=== PATIENT | female | born 1960 | race Two or more races ===

== ENCOUNTER 2020-07-06 08:09 | Outpatient (REF) | payer OTHER, SELFPAY | END 2020-07-06 08:10 | disposition home or self-care (01) | LOC: HO.LAB 08:09 | PROVIDERS: Visit Provider Internal Medicine | DX: Z20.828 Contact with and (suspected) exposure to other viral communicable diseases (principal) | CPT/HCPCS: C9803; U0003 ==

== ENCOUNTER → 2022-03-13 13:51 | Outpatient (BNVA) | payer OTHER, SELFPAY | PROVIDERS: PCP Internal Medicine; Visit Provider Student in an Organized Health Care Education/Training Program | DX: M79.18 Myalgia, other site (principal); M79.7 Fibromyalgia; M81.8 Other osteoporosis without current pathological fracture | CPT/HCPCS: 20552; 99202 ==

== ENCOUNTER → 2022-06-08 12:49 | Outpatient (BNVA) | payer OTHER, SELFPAY | PROVIDERS: PCP Internal Medicine; Visit Provider Student in an Organized Health Care Education/Training Program | DX: M79.18 Myalgia, other site (principal); M81.0 Age-related osteoporosis without current pathological fracture; M47.816 Spondylosis without myelopathy or radiculopathy, lumbar region; G47.33 Obstructive sleep apnea (adult) (pediatric); Z99.89 Dependence on other enabling machines and devices | CPT/HCPCS: 20552; 99212 ==

== ENCOUNTER → 2022-09-07 12:50 | Outpatient (BNVA) | payer OTHER, SELFPAY | PROVIDERS: PCP Internal Medicine; Visit Provider Student in an Organized Health Care Education/Training Program | DX: M81.8 Other osteoporosis without current pathological fracture (principal); M79.10 Myalgia, unspecified site | CPT/HCPCS: 99212 ==

== ENCOUNTER 2022-09-20 13:51 | Outpatient (REF) | payer OTHER, SELFPAY ==
--- NOTE | ~2022-09-20 | MM_ITS ---
EXAMINATION: BONE DENSITOMETRY CLINICAL INDICATION: Other osteoporosis without current pathological fracture. COMPARISON: None (current study represents initial baseline exam). TECHNIQUE: Using a Valid[employer] DXA System (software version: 13.1) manufactured by [employer], dual-energy x-ray absorptiometry was performed of the lumbar spine and left hip and left forearm radius 33%. The images are of good technical quality. Summary results are attached. FINDINGS: AP SPINE L1-L4: BMD 0.963 g/cm2, Z-score -0.6, T-score -1.8, osteopenia. LEFT FEMUR, NECK: BMD 0.670 g/cm2, Z-score -1.4, T-score -2.6, osteoporosis. LEFT FEMUR, TOTAL: BMD 0.700 g/cm2, Z-score -1.5, T-score -2.4, osteopenia. LEFT FOREARM RADIUS 33%: BMD 0.783 g/cm2, Z-score 0.0, T-score -1.1, osteopenia. IDENTIFIED RISK FACTORS: Bilateral oophorectomy, early menopause, history of fracture (adult), hysterectomy, osteoporosis, recurrent falls, rheumatoid arthritis, secondary osteoporosis. HISTORY OF FRACTURE: Wrist. Ribs. MEDICATIONS: None listed. MM/XR DEXA appendicular skeleton IMPRESSION: 1. DIAGNOSIS: Osteoporosis based on the lowest T-score value of -2.6 in the femoral neck applying World Health Organization criteria. 2. 10-YEAR FRACTURE RISK PREDICTION, FRAX: According to the guidelines, FRAX calculation should only be performed on patients in the osteopenia bone density category. Therefore, FRAX was not performed on this patient. 3. Treatment Recommendations: NOF guidelines recommend consideration for treatment in postmenopausal women and men age 50 and older presenting with the following: -A hip or vertebral (clinical or morphometric) fracture. -T-score less than or equal to -2.5 at the femoral neck or spine after appropriate evaluation to exclude secondary causes. -Low bone mass at the hip or spine and a 10-year fracture probability by FRAX of greater than or equal to 3% for hip fracture or greater than or equal to 20% for major osteoporotic fracture based on the [place] adapted WHO algorithm. 4. Other Recommendations: All treatment decisions require clinical judgment and consideration of individual patient factors, including patient preferences, comorbidities, previous drug use, risk factors not captured in the FRAX model (e.g. frailty, falls, vitamin D deficiency, increased bone turnover, interval significant decline in bone density) and possible under or overestimation of fracture risk by FRAX. Additional medical evaluation for secondary cause of low bone mineral density may be appropriate. FUTURE SCAN RECOMMENDATION: People with diagnosed cases of osteoporosis or at high risk for fracture should have regular bone mineral density tests. For patients eligible for Medicare, routine testing is allowed once every 2 years. The testing frequency can be increased to one year for patients who have rapidly progressing disease, those who are receiving or discontinuing medical therapy to restore bone mass, or have additional risk factors.
== END 2022-09-20 13:52 | disposition home or self-care (01) ==
LOC: HO.MAMMO 13:51
PROVIDERS: PCP Internal Medicine; Visit Provider Student in an Organized Health Care Education/Training Program
DX: Z13.820 Encounter for screening for osteoporosis (principal); M81.8 Other osteoporosis without current pathological fracture; Z78.0 Asymptomatic menopausal state
CPT/HCPCS: 77081

== ENCOUNTER 2023-10-24 15:13 | Outpatient (REF) | payer OTHER, SELFPAY ==
--- NOTE | ~2023-10-24 | XR_ITS ---
EXAM: X-RAYS BILATERAL KNEES CLINICAL INFORMATION: Rheumatoid arthritis. COMPARISON: None. TECHNIQUE: 4 views of each knee. FINDINGS: RIGHT KNEE: The bones are diffusely demineralized. Minimal narrowing of the medial compartment. Tiny marginal osteophytes. Trace suprapatellar effusion. XR/XR knee RT 4V IMPRESSION: Minimal degenerative changes.
--- NOTE | ~2023-10-24 | XR_ITS ---
EXAMINATION: XR RIGHT ANKLE, RIGHT FOOT, LEFT FOOT, LEFT SHOULDER, RIGHT SHOULDER, LEFT KNEE, LEFT HAND/WRIST, RIGHT HAND/WRIST CLINICAL INFORMATION: Rheumatoid arthritis unspecified. COMPARISON: Left ankle, right knee 10/24/2023. TECHNIQUE: 4 views left knee. 3 views right foot. 2 views right ankle. 3 views left foot. 4 views of each hand/wrist. 3 views of each shoulder. FINDINGS: Left Knee: Faint chondrocalcinosis in the medial and lateral compartments. Mild narrowing of the medial compartment. The bones are diffusely demineralized. No significant joint effusion. Faint amorphous calcifications in the soft tissues posterior to the distal femur. Mild degenerative changes in the patellofemoral compartment. Right Foot: Bones are diffusely demineralized. Moderate degenerative changes in the tarsometatarsal joints. Tiny dorsal and plantar calcaneal spurs. Mild degenerative changes and scattered IP joints. Right Ankle: Alignment preserved. Tiny calcification/ossification in the soft tissues lateral to the distal fibula of undetermined age and etiology. Bones are diffusely demineralized. Left Foot: Bones are diffusely demineralized. Moderate degenerative changes in the tarsometatarsal joints. Tiny dorsal and plantar calcaneal spurs. Mild degenerative changes and scattered IP joints. Left Ankle: Tiny dorsal and plantar calcaneal spurs. A few linear calcifications in the soft tissues along the plantar aspect of the calcaneus, possibly within the plantar fascia. Left Hand: Moderate degenerative changes in the first carpometacarpal joint with joint space narrowing and hypertrophic change. Bones are diffusely demineralized. Mild degenerative changes in scattered IP joints, particularly DIP joints. Tiny rounded calcification in the soft tissues between the distal aspects of the radius and ulna. Moderate degenerative changes in the first metacarpophalangeal joint with joint space narrowing and hypertrophic change. Subtle small cystic lucency in the body of the left scaphoid. Right Hand: Bones are diffusely demineralized. Moderate degenerative changes in the first carpometacarpal joint with joint space narrowing and hypertrophic change. Subtle sclerosis with cystic lucencies in the lunate. Faint calcification in the soft tissues distal to the ulna. Narrowing of the radiocarpal joint. Moderate degenerative changes with joint space narrowing and hypertrophic change in the first metacarpophalangeal joint. Mild degenerative changes and scattered IP joints, particularly notable in the DIP joints. Right Shoulder: Mild degenerative changes in the acromioclavicular joint with joint space narrowing and hypertrophic change. Mild degenerative changes with hypertrophic change along the glenoid. Possible faint curvilinear soft tissue calcification along the superolateral aspect of the glenoid. Tiny calcification along the superior aspect of the glenohumeral joint. Left Shoulder: The bones are diffusely demineralized. Mild degenerative changes in the acromioclavicular joint with joint space narrowing and hypertrophic change. Degenerative changes with hypertrophic change along the glenoid. Possible very subtle faint calcifications along the superior aspect of the glenohumeral joint and possibly superior to the greater tuberosity. XR/XR shoulder RT min 2V IMPRESSION: 1. Mild degenerative changes left knee. 2. Moderate degenerative changes bilateral feet. 3. Moderate degenerative changes bilateral hands. 4. Mild degenerative changes bilateral shoulders.
--- NOTE | ~2023-10-24 | XR_ITS ---
EXAM: X-RAYS BILATERAL KNEES CLINICAL INFORMATION: Rheumatoid arthritis. COMPARISON: None. TECHNIQUE: 4 views of each knee. FINDINGS: RIGHT KNEE: The bones are diffusely demineralized. Minimal narrowing of the medial compartment. Tiny marginal osteophytes. Trace suprapatellar effusion. XR/XR ankle LT min 3V IMPRESSION: Minimal degenerative changes.
[2023-10-24 16:45] LABS: MANUAL DIFF FLAG NO
[2023-10-24 18:02] LABS: Basophils Absolute Auto 0.1 X10*3/uL (0.0-0.2); Basophils Percent Auto 0.7 % (0-2); Eosinophils Absolute Auto 0.1 X10*3/uL (0.0-0.4); Imm Gran Abs Auto 0.03 X10*3/uL (0.00-0.03); Imm Gran Pct Auto 0.3 % (0.0-0.4); Lymphocytes Absolute Auto 2.8 X10*3/uL (1.2-4.9); Lymphocytes Percent Auto 27.7 % (20-40); Mean Corpuscular HGB Conc 32.5 g/dl (31.0-35.0); Mean Corpuscular Hemoglobin 30.1 pg (27.0-33.0); Mean Corpuscular Volume 92.6 fL (80.0-98.0); Mean Platelet Volume 11.9 fL (9.4-12.3); Monocytes Absolute Auto 0.6 X10*3/uL (0.1-1.2); Monocytes Percent Auto 5.7 % (2-11); Neutrophils Absolute Auto 6.5 x10*3/uL (2.0-8.3); Neutrophils Percent Auto 64.6 % (45-73); Platelet Count 204 X10*3/uL (160-400); Red Blood Count 4.32 X10*6/uL (4.20-5.50); Red Cell Distribution Width 12.7 % (11.0-16.0)
[2023-10-24 18:04] LABS: Appearance Urine Clear; Color Urine Yellow; Glucose Urine UA Negative (Negative); Leukocyte Esterase Urine Trace (Negative); Nitrite Urine Negative (Negative); PH 6.5 (5.0-9.0); Specific Gravity - Urine 1.015 (1.005-1.025); UMIC TRIGGER UA YES; Urine Blood Moderate (2+) (Negative); Urine Ketones Negative (Negative); Urine Protein Negative (Neg-Trace)
[2023-10-24 18:10] LABS: Bacteria Urine None Seen (None Seen); Hyaline Casts Urine 0-2 /LPF (0-2); Squamous Epithelial Cell Urine 0-2 /HPF (0-2); WBC Urine 0-5 /HPF (0-5)
[2023-10-24 18:43] LABS: Alanine Aminotransferase 19 U/L (0-31); Albumin Level 4.5 g/dL (3.5-5.0); Alkaline Phosphatase 98 U/L (39-117); Anion Gap 11 (12-20); Aspartate Amino Transferase 18 U/L (5-31); Bilirubin Total 0.4 mg/dL (0.0-1.0); Blood Urea Nitrogen 13 mg/dL (9-16); C Reactive Protein < 0.10 mg/dL (< or = 0.50); Carbon Dioxide 28 mmol/L (22-29); Chloride 106 mmol/L (96-108); Estimated Glomerular Filt Rate > 60; Glucose Random 79 mg/dL (60-115); Potassium 3.7 mmol/L (3.3-5.1); Sodium 141 mmol/L (135-145); Total Protein 8.1 g/dL (6.5-8.0)
[2023-10-24 18:47] LABS: Total Protein Urine Random < 7 mg/dL (<12)
[2023-10-24 18:47] LABS: Erythrocyte Sedimentation Rate 25 MM/HR (0-20); Rheumatoid Factor < 13.0 IU/mL (<15.0)
[2023-10-25 04:33] LABS: HBS Num1 35.58 mIU/mL (0-7.99); HBc Num1 0.08 S/CO (0.00-0.79); HBsAGNum1 0.51 S/CO (0.00-0.99); Hepatitis A Antibody IgM 0.22 Index (0-0.79); Hepatitis B Core Antibody Nonreactive (Nonreactive); Hepatitis B Surface Antigen Negative (Negative); ~HepC Num1 0.22 S/CO (0.00-0.79); ~Hepatitis A Antibody IgM Nonreactive (Nonreactive); ~Hepatitis B Surface Antibody REACTIVE (Nonreactive); ~Hepatitis C Antibody Nonreactive (Nonreactive)
[2023-10-25 15:38] LABS: Cyclic Citrullinated Peptide 174 UNITS
[2023-10-25 16:38] LABS: Anti Nuclear Antibody Screen NEGATIVE (NEGATIVE)
[2023-10-25 22:24] LABS: Prot Elec - Albumin 4.6 g/dL (3.8-4.8); Prot Elec - Alpha1 0.3 g/dL (0.2-0.3); Prot Elec - Alpha2 0.7 g/dL (0.5-0.9); Prot Elec - Beta 1 0.5 g/dL (0.4-0.6); Prot Elec - Beta 2 0.5 g/dL (0.2-0.5); Prot Elec - Gamma 1.3 g/dL (0.8-1.7); Prot Elec - Total Protein 7.8 g/dL (6.1-8.1)
[2023-10-26 23:23] LABS: Complement C3 141 mg/dL (83-193)
[2023-10-27 05:13] LABS: TS Negative Control Passed; TS Panel A 0; TS Panel B 0; TS Positive Control Passed; TSpotTB Negative (Negative)
[2023-10-28 14:29] LABS: Anti DNA DS Antibody <1 IU/mL; Antibody to SS-A Antigen <1.0 NEG AI (<1.0 NEG); Antibody to SS-B Antigen <1.0 NEG AI (<1.0 NEG); SM/Ribonucleoprotein Ab <1.0 NEG AI (<1.0 NEG); Smith Protein <1.0 NEG AI (<1.0 NEG)
[2023-10-30 14:54] LABS: DNAds, Crithidia Antibody Negative (Negative)
== END 2023-10-24 15:14 | disposition home or self-care (01) ==
LOC: HO.XRAY 15:13
PROVIDERS: PCP Internal Medicine; Visit Provider Student in an Organized Health Care Education/Training Program
DX: M32.9 Systemic lupus erythematosus, unspecified (principal); M06.9 Rheumatoid arthritis, unspecified; M25.50 Pain in unspecified joint; M81.8 Other osteoporosis without current pathological fracture; Z79.899 Other long term (current) drug therapy
CPT/HCPCS: 36415; 73030; 73110; 73130; 73564; 73610; 73630; 80053; 81001; 84156; 84165; 85025; 85652; 86038; 86140; 86160; 86200; 86225; 86235; 86255; 86431; 86481; 86704; 86706; 86709; 86803; 87340; 99212

== ENCOUNTER 2023-10-24 15:13 | Outpatient (AMB) | payer OTHER, SELFPAY ==
[2023-10-24 15:29] VITALS: BP 124/62; PULSE 93; O2SAT 98; BMI 25.7
--- NOTE | 2023-10-24 15:29 | A.OFFVIS_ITS ---
Intake Vital Signs 10/24/23 15:29 Height 5 ft 9 in Weight 174 lb 6.17 oz BMI 25.7 BP 124/62 Blood Pressure Location Rt brachial Position Sitting Pulse 93 Pulse Source Pulse Oximeter Pulse Oximetry (%) 98 Oxygen Delivery Method Room Air Intake Visit Reasons: FM/ LVM Intake Note: Patient last seen 09/07/22 presents today for follow up and DEXA results. 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 Name: - form signed Information Interpreted: non-clinical & clinical Accompanied by: Spouse Allergies gabapentin Adverse Reaction (Intermediate, Unverified 10/24/23 15:31) Rash Penicillins Adverse Reaction (Intermediate, Unverified 10/24/23 15:31) Rash Medication List - Last Reconciled 10/24/23 by Arlen Carrillo MD albuterol sulfate 90 mcg/actuation 2 puffs inhalation Q6H PRN atorvastatin 20 mg PO DAILY cetirizine (All Day Allergy (cetirizine)) 10 mg PO DAILY PRN cholecalciferol (vitamin D3) 50 mcg PO DAILY cyclosporine 0.05% (Restasis) 1 drp ophthalmic (eye) Q12H diclofenac sodium 1% (Arthritis Pain (diclofenac)) 2 grams topical QID diclofenac sodium 75 mg PO BID docusate sodium 100 mg PO BID doxepin 10 mg PO BEDTIME ergocalciferol (vitamin D2) units PO .every week fluoxetine 20 mg PO DAILY fluticasone propion-salmeterol 250-50 mcg/dose (Wixela Inhub) 1 inh inhalation BID lidocaine 5% (Lidoderm) 1 patch topical DAILY lorazepam 1 mg PO BID PRN oxycodone 0 mg PO propranolol ER 60 mg PO DAILY sumatriptan succinate (Imitrex) take 1 tab at onset of headache; if no relief, may repeat 1 tab after at least 2 hrs; max = 2 tabs/24 hrs PO zolpidem 10 mg PO BEDTIME PRN HPI HPI Comments History of Present Illness Details 63-year-old female with fibromyalgia ret urns for follow-up. She presents with her . She states that recently she has been having pain in both hands. Swelling bilateral 2nd MCP. Morning stiffness lasting about 30 minutes. She also has bilateral knee and ankle pain and swelling Initial history: 61 y/o F with FM. used to see Dr. Frias before. She was allergic to Gabapentin, Never tried Lyrica. She continues to have the same pain mostly in her neck, upper back and shoulders. No joint swelling. Continues to have fatigue. [facility] Medical History Migraine GERD (gastroesophageal reflux disease) Depression Hyperlipidemia Degenerative disc disease, lumbar Age-related osteoporosis without fracture Fibromyalgia Nephrolithiasis Surgical History History of mammogram H/O total hysterectomy Hx of bilateral breast reduction surgery Hx of colonoscopy History of esophagogastroduodenoscopy (EGD) Family History Father Myocardial infarction Diabetes Coronary artery disease Mother Brain aneurysm Rheumatoid arthritis Gastric cancer Sister Rheumatoid arthritis Social History Household Members: Spouse Alcohol intake: never Patient Tobacco Use Status: Never used Tobacco Current occupational status: disabled Review of Systems [employer] Reports back pain, Reports arthralgias, Reports joint swelling and Reports stiffness Physical Exam Vital Signs: Last Vital Signs Pulse 93 10/24/23 15:29 BP 124/62 10/24/23 15:29 Pulse Ox 98 10/24/23 15:29 Oxygen Delivery Method Room Air 10/24/23 15:29 BMI result Body Mass Index 25.7 Const General: cooperative, healthy appearing and comfortable Nutritional Appearance: overweight Orientation/consciousness: patient oriented x3 Limitations: no limitations HEENT Head: Yes normocephalic and Yes atraumatic Mouth: moist mucous membranes Resp Effort & Inspection: normal respiratory effort and able to speak in complete sentences Auscultation: clear to auscultation bilaterally Cardio Rate: regular rate Rhythm: regular rhythm GI Inspection: No distended Palpation (GI): Soft to palpation and nontender Skin General skin exam: no rashes or lesions noted Neuro General: patient oriented x3 Extrem Other: Right 2nd MCP swelling and tenderness Right 2nd flexor tendon tenderness Negative MCP squeeze test bilaterally Mild left 2nd MCP swelling without tenderness No active synovitis otherwise both hands and wrists Bilateral limited shoulder abduction, painful shoulder abduction bilaterally Bilateral trapezius muscle tenderness Bilateral knee crepitus and pain with full flexion and extension Right lateral malleolus tenderness No MTP tenderness bilaterally Negative MTP squeeze test bilaterally Assessment & Plan Assessment & Plan (1) Polyarthralgia: Code(s): M25.50 - Pain in unspecified joint Plan: This is a 63-year-old female with known fibromyalgia who presents for evaluation of multiple painful, swollen joints and morning stiffness. Will order comprehensive serology to screen for underlying autoimmune rheumatic disease. Check x-rays of involved joints. Start prednisone therapeutic trial Follow-up in 3 weeks (2) Age-related osteoporosis without fracture: Code(s): M81.8 - Other osteoporosis without current pathological fracture Plan: Launch by endocrinology at [facility] I spent 30 minutes reviewing patient's chart, evaluating patient, ordering diagnostic workup, counseling patient and documenting in the chart Orders: Orders SVETLANA Reflex Titer and Pattern Today M32.9 - Systemic lupus erythematosus, unspecified Anti Extractable Nuclear Ag Today M32.9 - Systemic lupus erythematosus, unspecified Complement C3 Today M32.9 - Systemic lupus erythematosus, unspecified Complement C4 Today M32.9 - Systemic lupus erythematosus, unspecified C Reactive Protein Today M32.9 - Systemic lupus erythematosus, unspecified Erythrocyte Sedimentation Rate Today M32.9 - Systemic lupus erythematosus, unspecified Protein Creatinine Ratio, Ur Today M32.9 - Systemic lupus erythematosus, unspecified UA w Microscopic Today M32.9 - Systemic lupus erythematosus, unspecified Complete Blood Count Auto Diff Today M32.9 - Systemic lupus erythematosus, unspecified Hepatitis A,B,C Profile Today M32.9 - Systemic lupus erythematosus, unspecified Rheumatoid Factor Today M06.9 - Rheumatoid arthritis, unspecified Cyclic Citrullinated Peptide Today M06.9 - Rheumatoid arthritis, unspecified XR knee RT 3V Today M06.9 - Rheumatoid arthritis, unspecified XR knee standing BI Today M06.9 - Rheumatoid arthritis, unspecified XR ankle RT min 3V Today M06.9 - Rheumatoid arthritis, unspecified XR foot RT min 3V Today M06.9 - Rheumatoid arthritis, unspecified XR hand wrist LT Today M06.9 - Rheumatoid arthritis, unspecified XR hand wrist RT Today M06.9 - Rheumatoid arthritis, unspecified Anti DNA DS Antibody Today M32.9 - Systemic lupus erythematosus, unspecified DNA Double Stranded-Crithidia Today M32.9 - Systemic lupus erythematosus, unspecified Sjogren's Antibodies Today M32.9 - Systemic lupus erythematosus, unspecified Comprehensive Met. Panel Today M32.9 - Systemic lupus erythematosus, unspecified T Spot TB Today M32.9 - Systemic lupus erythematosus, unspecified Protein Electrophoresis, Serum Today M32.9 - Systemic lupus erythematosus, unspecified Immunofixation Pnl, Serum Today M32.9 - Systemic lupus erythematosus, unspecified XR knee LT 3V Today M06.9 - Rheumatoid arthritis, unspecified XR ankle LT min 3V Today M06.9 - Rheumatoid arthritis, unspecified XR foot LT min 3V Today M06.9 - Rheumatoid arthritis, unspecified XR shoulder LT min 2V Today M06.9 - Rheumatoid arthritis, unspecified XR shoulder RT min 2V Today M06.9 - Rheumatoid arthritis, unspecified Medications: New prednisone Take 3 tabs daily for 1 week, 2 tabs daily for 1 week, 1 tab daily for 1 week then stop 42 tabs 0RF Coding Level of Care Code Est Pt Level 4 (31542) Diagnoses Polyarthralgia M25.50 Age-related osteoporosis without fracture M81.8
== END 2023-10-24 15:53 | disposition home or self-care (01) ==
PROVIDERS: PCP Internal Medicine; Visit Provider Student in an Organized Health Care Education/Training Program
DX: M25.50 Pain in unspecified joint (principal); M81.8 Other osteoporosis without current pathological fracture
CPT/HCPCS: 99214

== ENCOUNTER 2023-11-14 11:40 | Outpatient (AMB) | payer OTHER, SELFPAY ==
[2023-11-14 11:43] VITALS: BP 108/62; PULSE 75; O2SAT 98; BMI 25.5
--- NOTE | 2023-11-14 11:43 | MHC.OFFVIS ---
Intake Vital Signs 11/14/23 11:43 Height 5 ft 9 in Weight 172 lb 9.951 oz BMI 25.5 BP 108/62 Blood Pressure Location Rt brachial Position Sitting Pulse 75 Pulse Source Pulse Oximeter Pulse Oximetry (%) 98 Oxygen Delivery Method Room Air Intake Visit Reasons: RA/OA Intake Note: Patient last seen 10/24/23 presents today for follow up and test results. Apprentice Instrument Technician Required: Yes Apprentice Instrument Technician Language: Narcotics Agent Name: - form signed Information Interpreted: non-clinical & clinical Accompanied by: Allergies gabapentin Adverse Reaction (Intermediate, Unverified 11/14/23 11:48) Rash Penicillins Adverse Reaction (Intermediate, Unverified 11/14/23 11:48) Rash Medication List - Last Reconciled 11/14/23 by Arlen Carrillo MD albuterol sulfate 90 mcg/actuation 2 puffs inhalation Q6H PRN atorvastatin 20 mg PO DAILY cetirizine (All Day Allergy (cetirizine)) 10 mg PO DAILY PRN cholecalciferol (vitamin D3) 50 mcg PO DAILY cyclosporine 0.05% (Restasis) 1 drp ophthalmic (eye) Q12H diclofenac sodium 1% (Arthritis Pain (diclofenac)) 2 grams topical QID diclofenac sodium 75 mg PO BID docusate sodium 100 mg PO BID doxepin 10 mg PO BEDTIME ergocalciferol (vitamin D2) units PO .every week fluoxetine 20 mg PO DAILY fluticasone propion-salmeterol 250-50 mcg/dose (Wixela Inhub) 1 inh inhalation BID lidocaine 5% (Lidoderm) 1 patch topical DAILY lorazepam 1 mg PO BID PRN oxycodone 0 mg PO prednisone Take 3 tabs daily for 1 week, 2 tabs daily for 1 week, 1 tab daily for 1 week then stop propranolol ER 60 mg PO DAILY sumatriptan succinate (Imitrex) take 1 tab at onset of headache; if no relief, may repeat 1 tab after at least 2 hrs; max = 2 tabs/24 hrs PO zolpidem 10 mg PO BEDTIME PRN HPI HPI Comments History of Present Illness Details Patient returns for follow-up after completion of her diagnostic workup. States that prednisone did not provide much help. Her joint pain and swelling is much worse at night. Especially with swelling of her knuckles. Initial history: 61 y/o F with FM. used to see Dr. Frias before. She was allergic to Gabapentin, Never tried Lyrica. She continues to have the same pain mostly in her neck, upper back and shoulders. No joint swelling. Continues to have fatigue. [facility] Medical History (Updated 11/14/23 @ 12:17 by Arlen Carrillo MD) Migraine GERD (gastroesophageal reflux disease) Depression Hyperlipidemia Degenerative disc disease, lumbar Age-related osteoporosis without fracture Fibromyalgia Nephrolithiasis Surgical History History of mammogram H/O total hysterectomy Hx of bilateral breast reduction surgery Hx of colonoscopy History of esophagogastroduodenoscopy (EGD) Family History Father Myocardial infarction Diabetes Coronary artery disease Mother Brain aneurysm Rheumatoid arthritis Gastric cancer Sister Rheumatoid arthritis Social History Household Members: Spouse Alcohol intake: never Patient Tobacco Use Status: Never used Tobacco Current occupational status: disabled Review of Systems [facility] Reports back pain, Reports arthralgias, Reports joint swelling and Reports stiffness Physical Exam Vital Signs: Last Vital Signs Pulse 75 11/14/23 11:43 BP 108/62 11/14/23 11:43 Pulse Ox 98 11/14/23 11:43 Oxygen Delivery Method Room Air 11/14/23 11:43 BMI result Body Mass Index 25.5 Const General: cooperative, healthy appearing and comfortable Nutritional Appearance: overweight Orientation/consciousness: patient oriented x3 Limitations: no limitations HEENT Head: Yes normocephalic and Yes atraumatic Mouth: moist mucous membranes Resp Effort & Inspection: normal respiratory effort and able to speak in complete sentences Skin General skin exam: no rashes or lesions noted Neuro General: patient oriented x3 Extrem Other: Right 2nd MCP puffiness without tenderness Negative MCP squeeze test bilaterally Mild left 2nd MCP puffiness without tenderness No active synovitis otherwise both hands and wrists Normal range of motion of both shoulders bilaterally No MTP tenderness bilaterally Negative MTP squeeze test bilaterally Assessment & Plan Assessment & Plan (1) Seropositive rheumatoid arthritis: Comment: -ve RF ++CCP dx 10/2023 Code(s): M05.9 - Rheumatoid arthritis with rheumatoid factor, unspecified Plan: This is a 63-year-old female with known fibromyalgia who presents for evaluation of multiple swollen and painful joints. Labs showed mildly elevated ESR and significantly elevated CCP. Symptoms improved with prednisone. Will need to start DMARDs. Discussed risks and benefits of methotrexate. Patient agreed to proceed. 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
== END 2023-11-14 12:13 | disposition home or self-care (01) ==
PROVIDERS: PCP Internal Medicine; Visit Provider Student in an Organized Health Care Education/Training Program
DX: M05.79 Rheumatoid arthritis with rheumatoid factor of multiple sites without organ or systems involvement (principal); M81.8 Other osteoporosis without current pathological fracture; Z79.631 Long term (current) use of antimetabolite agent
CPT/HCPCS: 99214

== ENCOUNTER → 2023-11-14 11:40 | Outpatient (BNVA) | payer OTHER, SELFPAY | PROVIDERS: PCP Internal Medicine; Visit Provider Student in an Organized Health Care Education/Training Program | DX: M05.9 Rheumatoid arthritis with rheumatoid factor, unspecified (principal); M79.7 Fibromyalgia; M81.8 Other osteoporosis without current pathological fracture; Z79.631 Long term (current) use of antimetabolite agent; Z79.52 Long term (current) use of systemic steroids | CPT/HCPCS: 99212 ==

== ENCOUNTER 2024-01-03 06:38 | Outpatient (REF) | payer OTHER, SELFPAY ==
[2024-01-03 06:47] LABS: MANUAL DIFF FLAG NO
[2024-01-03 07:11] LABS: Basophils Absolute Auto 0.1 X10*3/uL (0.0-0.2); Basophils Percent Auto 0.9 % (0-2); Eosinophils Absolute Auto 0.1 X10*3/uL (0.0-0.4); Eosinophils Percent Auto 1.9 % (0-4); Hematocrit 37.4 % (37.0-47.0); Hemoglobin 12.3 g/dl (12.0-16.0); Imm Gran Abs Auto 0.02 X10*3/uL (0.00-0.03); Imm Gran Pct Auto 0.3 % (0.0-0.4); Lymphocytes Absolute Auto 2.1 X10*3/uL (1.2-4.9); Lymphocytes Percent Auto 30.4 % (20-40); Mean Corpuscular HGB Conc 32.9 g/dl (31.0-35.0); Mean Corpuscular Hemoglobin 30.8 pg (27.0-33.0); Mean Corpuscular Volume 93.5 fL (80.0-98.0); Mean Platelet Volume 10.8 fL (9.4-12.3); Monocytes Absolute Auto 0.5 X10*3/uL (0.1-1.2); Monocytes Percent Auto 7.3 % (2-11); Neutrophils Percent Auto 59.2 % (45-73); Platelet Count 215 X10*3/uL (160-400); Red Cell Distribution Width 13.5 % (11.0-16.0); White Blood Count 6.7 X10*3/uL (4.8-10.8)
[2024-01-03 07:21] LABS: Alanine Aminotransferase 14 U/L (0-31); Albumin Level 4.3 g/dL (3.5-5.0); Alkaline Phosphatase 106 U/L (39-117); Anion Gap 10 (12-20); Aspartate Amino Transferase 18 U/L (5-31); Bilirubin Total 0.2 mg/dL (0.0-1.0); Blood Urea Nitrogen 10 mg/dL (9-16); C Reactive Protein < 0.10 mg/dL (< or = 0.50); Calcium 9.9 mg/dL (8.4-10.2); Carbon Dioxide 28 mmol/L (22-29); Chloride 109 mmol/L (96-108); Estimated Glomerular Filt Rate > 60; Glucose Random 86 mg/dL (60-115); Potassium 4.1 mmol/L (3.3-5.1); Sodium 143 mmol/L (135-145); Total Protein 7.7 g/dL (6.5-8.0)
[2024-01-03 07:47] LABS: Erythrocyte Sedimentation Rate 23 MM/HR (0-20)
== END 2024-01-03 06:39 | disposition home or self-care (01) ==
LOC: HO.LAB 06:38
PROVIDERS: PCP Internal Medicine; Visit Provider Student in an Organized Health Care Education/Training Program
DX: Z51.81 Encounter for therapeutic drug level monitoring (principal); Z79.631 Long term (current) use of antimetabolite agent
CPT/HCPCS: 36415; 80053; 85025; 85652; 86140

== ENCOUNTER 2024-01-14 14:23 | Outpatient (AMB) | payer OTHER, SELFPAY ==
[2024-01-14 14:27] VITALS: BP 134/82; PULSE 73; O2SAT 96; BMI 25.1
--- NOTE | 2024-01-14 14:27 | MHC.OFFVIS ---
Vital Signs 01/14/24 14:27 Height 5 ft 9 in Weight 169 lb 15.622 oz BMI 25.1 BP 134/82 Blood Pressure Location Rt brachial Position Sitting Pulse 73 Pulse Source Pulse Oximeter Pulse Oximetry (%) 96 Oxygen Delivery Method Room Air Intake Visit Reasons: RA Intake Note: Patient present today for RA follow up visit. Cement Mixer Required: Yes Cement Mixer Language: Upper Sorbian Information Interpreted: non-clinical & clinical Accompanied by: Self / Same As Patient Allergies gabapentin Adverse Reaction (Intermediate, Unverified 01/14/24 14:30) Rash Penicillins Adverse Reaction (Intermediate, Unverified 01/14/24 14:30) Rash Medication List - Last Reconciled 01/14/24 by Arlen Carrillo MD albuterol sulfate 90 mcg/actuation 2 puffs inhalation Q6H PRN atorvastatin 20 mg PO DAILY cetirizine (All Day Allergy (cetirizine)) 10 mg PO DAILY PRN cholecalciferol (vitamin D3) 50 mcg PO DAILY cyclosporine 0.05% (Restasis) 1 drp ophthalmic (eye) Q12H diclofenac sodium 1% (Arthritis Pain (diclofenac)) 2 grams topical QID diclofenac sodium 75 mg PO BID docusate sodium 100 mg PO BID doxepin 10 mg PO BEDTIME ergocalciferol (vitamin D2) units PO .every week fluoxetine 20 mg PO DAILY fluticasone propion-salmeterol 250-50 mcg/dose (Wixela Inhub) 1 inh inhalation BID folic acid 1 mg PO DAILY lidocaine 5% (Lidoderm) 1 patch topical DAILY lorazepam 1 mg PO BID PRN methotrexate sodium Take 6 tabs once weekly for 2 weeks then 8 tabs once weekly oxycodone 0 mg PO prednisone Take 2 tabs daily for 2 weeks then remain on 1 tab daily propranolol ER 60 mg PO DAILY sumatriptan succinate (Imitrex) take 1 tab at onset of headache; if no relief, may repeat 1 tab after at least 2 hrs; max = 2 tabs/24 hrs PO zolpidem 10 mg PO BEDTIME PRN HPI Comments Details: 63-year-old female with seropositive RA returns for follow-up. She has been taking methotrexate regularly for the last 2 months. She takes methotrexate 20 mg on Saturday and she feels reasonably well until Saturday when she starts having more joint pain and stiffness especially of her shoulders. She has constant pain in her left 2nd MCP especially at night. She can not think of any side effects related to methotrexate. Initial history: 61 y/o F with FM. used to see Dr. Frias before. She was allergic to Gabapentin, Never tried Lyrica. She continues to have the same pain mostly in her neck, upper back and shoulders. No joint swelling. Continues to have fatigue. PFSH Medical History Migraine GERD (gastroesophageal reflux disease) Depression Hyperlipidemia Degenerative disc disease, lumbar Age-related osteoporosis without fracture Fibromyalgia Nephrolithiasis Surgical History History of mammogram H/O total hysterectomy Hx of bilateral breast reduction surgery Hx of colonoscopy History of esophagogastroduodenoscopy (EGD) Family History Father Myocardial infarction Diabetes Coronary artery disease Mother Brain aneurysm Rheumatoid arthritis Gastric cancer Sister Rheumatoid arthritis Social History Household Members: Spouse Alcohol intake: never Patient Tobacco Use Status: Never used Tobacco Current occupational status: disabled Review of Systems [employer] Reports arthralgias, Reports joint swelling and Reports stiffness Physical Exam Vital Signs: Last Vital Signs Pulse 73 01/14/24 14:27 BP 134/82 01/14/24 14:27 Pulse Ox 96 01/14/24 14:27 Oxygen Delivery Method Room Air 01/14/24 14:27 BMI result Body Mass Index 25.1 Const General: cooperative, healthy appearing and comfortable Nutritional Appearance: overweight Orientation/consciousness: patient oriented x3 Limitations: no limitations HEENT Head: Yes normocephalic and Yes atraumatic Mouth: moist mucous membranes Resp Effort & Inspection: normal respiratory effort and able to speak in complete sentences Skin General skin exam: no rashes or lesions noted Neuro General: patient oriented x3 Extrem Other: Right wrist pain with full extension No swelling or tenderness noted Negative MCP squeeze test bilaterally Left 2nd MCP swelling and tenderness No active synovitis otherwise both hands and wrists Bilateral limited shoulder abduction due to pain No MTP tenderness bilaterally Negative MTP squeeze test bilaterally Assessment & Plan Assessment & Plan (1) Seropositive rheumatoid arthritis: Comment: -ve RF ++CCP dx 10/2023 MTX 10/2023 Code(s): M05.9 - Rheumatoid arthritis with rheumatoid factor, unspecified Category: Medical Plan: This is a 63-year-old female with new onset seropositive RA who returns for follow-up. She has been taking methotrexate 20 mg weekly for the last 2 months. She feels noticeable improvement for 3-4 days then pain and swelling returns. On exam she has few tender joints. Methotrexate has been well tolerated Increase methotrexate to 25 mg weekly and split dose, 5 tabs on Saturday and 5 tabs on Saturday Continue folic acid 1 mg daily Labs before next visit in 3 months (2) Age-related osteoporosis without fracture: Code(s): M81.8 - Other osteoporosis without current pathological fracture Category: Medical Plan: Followed by endocrinology at [place] (3) half-way methotrexate user: Code(s): Z79.631 - half-way (current) use of antimetabolite agent Category: Medical Plan: Monitor safety labs Plan I spent 25 minutes reviewing patient's chart, evaluating patient, ordering diagnostic workup, counseling patient and documenting in the chart Orders: Orders Complete Blood Count Auto Diff 3 Months M05.9 - Rheumatoid arthritis with rheumatoid factor, unspecified, Z79.631 - terminal computer operator (current) use of antimetabolite agent Comprehensive Met. Panel 3 Months M05.9 - Rheumatoid arthritis with rheumatoid factor, unspecified, Z79.631 - half-way (current) use of antimetabolite agent C Reactive Protein 3 Months M05.9 - Rheumatoid arthritis with rheumatoid factor, unspecified, Z79.631 - terminal computer operator (current) use of antimetabolite agent Erythrocyte Sedimentation Rate 3 Months M05.9 - Rheumatoid arthritis with rheumatoid factor, unspecified, Z79.631 - terminal computer operator (current) use of antimetabolite agent Medications: Changed From methotrexate sodium Take 6 tabs once weekly for 2 weeks then 8 tabs once weekly 205 tabs 0RF To methotrexate sodium Take 5 tabs on Saturday and 5 tabs on Saturday 25 mg (10 x 2.5 mg) PO QWEEK 130 tabs 0RF Coding Level of Care Code Est Pt Level 4 (38654) Diagnoses Seropositive rheumatoid arthritis M05.9 Age-related osteoporosis without fracture M81.8 terminal computer operator methotrexate user Z79.631
== END 2024-01-14 15:04 | disposition home or self-care (01) ==
PROVIDERS: PCP Internal Medicine; Visit Provider Student in an Organized Health Care Education/Training Program
DX: M05.79 Rheumatoid arthritis with rheumatoid factor of multiple sites without organ or systems involvement (principal); M81.8 Other osteoporosis without current pathological fracture; Z79.631 Long term (current) use of antimetabolite agent
CPT/HCPCS: 99214

== ENCOUNTER → 2024-01-14 14:23 | Outpatient (BNVA) | payer OTHER, SELFPAY | PROVIDERS: PCP Internal Medicine; Visit Provider Student in an Organized Health Care Education/Training Program | DX: M05.9 Rheumatoid arthritis with rheumatoid factor, unspecified (principal); M81.8 Other osteoporosis without current pathological fracture; Z79.631 Long term (current) use of antimetabolite agent | CPT/HCPCS: 99212 ==

== ENCOUNTER 2024-04-07 11:57 | Outpatient (REF) | payer OTHER, SELFPAY ==
[2024-04-07 12:18] LABS: MANUAL DIFF FLAG NO
[2024-04-07 12:36] LABS: Basophils Absolute Auto 0.1 X10*3/uL (0.0-0.2); Basophils Percent Auto 0.8 % (0-2); Eosinophils Absolute Auto 0.1 X10*3/uL (0.0-0.4); Eosinophils Percent Auto 1.5 % (0-4); Hematocrit 38.1 % (37.0-47.0); Hemoglobin 12.7 g/dl (12.0-16.0); Imm Gran Abs Auto 0.02 X10*3/uL (0.00-0.03); Imm Gran Pct Auto 0.3 % (0.0-0.4); Lymphocytes Absolute Auto 2.5 X10*3/uL (1.2-4.9); Lymphocytes Percent Auto 33.7 % (20-40); Mean Corpuscular HGB Conc 33.3 g/dl (31.0-35.0); Mean Platelet Volume 10.5 fL (9.4-12.3); Monocytes Absolute Auto 0.4 X10*3/uL (0.1-1.2); Monocytes Percent Auto 5.4 % (2-11); Neutrophils Absolute Auto 4.3 x10*3/uL (2.0-8.3); Neutrophils Percent Auto 58.3 % (45-73); Platelet Count 230 X10*3/uL (160-400); Red Blood Count 3.97 X10*6/uL (4.20-5.50); Red Cell Distribution Width 13.8 % (11.0-16.0); White Blood Count 7.4 X10*3/uL (4.8-10.8)
[2024-04-07 13:01] LABS: Alanine Aminotransferase 35 U/L (0-31); Albumin Level 4.5 g/dL (3.5-5.0); Alkaline Phosphatase 85 U/L (39-117); Anion Gap 8 (12-20); Aspartate Amino Transferase 24 U/L (5-31); Bilirubin Total 0.5 mg/dL (0.0-1.0); Blood Urea Nitrogen 11 mg/dL (9-16); C Reactive Protein < 0.10 mg/dL (< or = 0.50); Calcium 9.8 mg/dL (8.4-10.2); Carbon Dioxide 27 mmol/L (22-29); Chloride 108 mmol/L (96-108); Estimated Glomerular Filt Rate > 60; Glucose Random 88 mg/dL (60-115); Potassium 4.3 mmol/L (3.3-5.1); Sodium 139 mmol/L (135-145); Total Protein 7.9 g/dL (6.5-8.0)
[2024-04-07 13:13] LABS: Erythrocyte Sedimentation Rate 23 MM/HR (0-20)
== END 2024-04-07 11:58 | disposition home or self-care (01) ==
LOC: HO.LAB 11:57
PROVIDERS: PCP Internal Medicine; Visit Provider Student in an Organized Health Care Education/Training Program
DX: M05.9 Rheumatoid arthritis with rheumatoid factor, unspecified (principal); Z79.631 Long term (current) use of antimetabolite agent
CPT/HCPCS: 36415; 80053; 85025; 85652; 86140

== ENCOUNTER 2024-04-16 13:57 | Outpatient (AMB) | payer OTHER, SELFPAY ==
[2024-04-16 14:49] VITALS: BP 126/76; PULSE 76; O2SAT 98; BMI 25.2
--- NOTE | 2024-04-16 14:49 | A.OFFVIS_ITS ---
Vital Signs 04/16/24 14:49 Height 5 ft 9 in Weight 171 lb BMI 25.2 BP 126/76 Blood Pressure Location Lt brachial Position Sitting Pulse 76 Pulse Source Pulse Oximeter Pulse Oximetry (%) 98 Oxygen Delivery Method Room Air Intake Visit Reasons: RA Intake Note: Patient last seen by Doctor Arlen Carrillo on 01/14/24. Presents today for RA follow, up and test results. Patient's states she has been having worsening symptoms everywhere. Methotrexate refill is requested today. General Car Yard Supervisor Services: General Car Yard Supervisor Offered & Declined Allergies gabapentin Adverse Reaction (Intermediate, Unverified 01/14/24 14:30) Rash Penicillins Adverse Reaction (Intermediate, Unverified 01/14/24 14:30) Rash Medication List - Last Reconciled 04/16/24 by Arlen Carrillo MD albuterol sulfate 90 mcg/actuation 2 puffs inhalation Q6H PRN atorvastatin 20 mg PO DAILY cetirizine (All Day Allergy (cetirizine)) 10 mg PO DAILY PRN cholecalciferol (vitamin D3) 50 mcg PO DAILY cyclosporine 0.05% (Restasis) 1 drp ophthalmic (eye) Q12H diclofenac sodium 1% (Arthritis Pain (diclofenac)) 2 grams topical QID diclofenac sodium 75 mg PO BID docusate sodium 100 mg PO BID doxepin 10 mg PO BEDTIME ergocalciferol (vitamin D2) units PO .every week fluoxetine 20 mg PO DAILY fluticasone propion-salmeterol 250-50 mcg/dose (Wixela Inhub) 1 inh inhalation BID folic acid 1 mg PO DAILY lidocaine 5% (Lidoderm) 1 patch topical DAILY lorazepam 1 mg PO BID PRN methotrexate sodium 20 mg (8 x 2.5 mg) PO QWEEK oxycodone 0 mg PO prednisone Take 2 tabs daily for 2 weeks then remain on 1 tab daily propranolol ER 60 mg PO DAILY sumatriptan succinate (Imitrex) take 1 tab at onset of headache; if no relief, may repeat 1 tab after at least 2 hrs; max = 2 tabs/24 hrs PO zolpidem 10 mg PO BEDTIME PRN HPI Comments Details: 63-year-old female with seropositive RA returns for follow-up in her . She increase methotrexate to 25 mg weekly last visit without much improvement. She states that the methotrexate helped her for about 2 days then she starts having diffuse joint pains. Initial history: 61 y/o F with FM. used to see Dr. Frias before. She was allergic to Gabapentin, Never tried Lyrica. She continues to have the same pain mostly in her neck, upper back and shoulders. No joint swelling. Continues to have fatigue. [facility] Medical History Migraine GERD (gastroesophageal reflux disease) Depression Hyperlipidemia Degenerative disc disease, lumbar Age-related osteoporosis without fracture Fibromyalgia Nephrolithiasis Surgical History History of mammogram H/O total hysterectomy Hx of bilateral breast reduction surgery Hx of colonoscopy History of esophagogastroduodenoscopy (EGD) Family History Father Myocardial infarction Diabetes Coronary artery disease Mother Brain aneurysm Rheumatoid arthritis Gastric cancer Sister Rheumatoid arthritis Social History Household Members: Spouse Alcohol intake: never Patient Tobacco Use Status: Never used Tobacco Current occupational status: disabled Review of Systems [facility] [place], [place] Reports arthralgias, Reports joint swelling and Reports stiffness Physical Exam Vital Signs: Last Vital Signs Pulse 76 04/16/24 14:49 BP 126/76 04/16/24 14:49 Pulse Ox 98 04/16/24 14:49 Oxygen Delivery Method Room Air 04/16/24 14:49 BMI result Body Mass Index 25.2 Const General: cooperative, healthy appearing and comfortable Nutritional Appearance: overweight Orientation/consciousness: patient oriented x3 Limitations: no limitations HEENT Head: Yes normocephalic and Yes atraumatic Mouth: moist mucous membranes Resp Effort & Inspection: normal respiratory effort and able to speak in complete sentences Auscultation: clear to auscultation bilaterally Cardio Rate: regular rate Skin General skin exam: no rashes or lesions noted Neuro General: patient oriented x3 Extrem Other: Right wrist pain with full extension No swelling or tenderness noted Negative MCP squeeze test bilaterally Left 2nd MCP swelling and tenderness Left 3rd MCP tenderness Left 2nd and 3rd PIP swelling without tenderness Right 3rd MCP swelling and tenderness Right 5th MCP swelling without tenderness Right 2nd and 3rd PIP swelling without tenderness Bilateral ankle tenderness No MTP tenderness bilaterally Negative MTP squeeze test bilaterally Patient global 7 Physician global 6 Swollen joint count 6 Tender joint count 5 Total CDAI 24 Assessment & Plan Assessment & Plan (1) Seropositive rheumatoid arthritis: Comment: -ve RF ++CCP dx 10/2023 MTX 10/2023 ineffective Code(s): M05.9 - Rheumatoid arthritis with rheumatoid factor, unspecified Category: Medical Plan: This is a 63-year-old female with new onset seropositive RA who returns for follow-up. Patient increased her methotrexate to 25 mg weekly for the last 3 months without improvement. She feels improvement for Tuesdays then the pain and swelling than joints returns. On exam she has multiple swollen and tender joints. We will need to add DMARDs Discussed risks and benefits of Humira. Patient agreed to proceed. We will start prior authorization for Humira. 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 Patient fully aware. Advised patient to seek medical care MI if patient has an infection and advised patient to stop the medication until the infection is resolved. Plan I spent 25 minutes reviewing patient's chart, evaluating patient, ordering diagnostic workup, counseling patient and documenting in the chart Orders: Orders Complete Blood Count Auto Diff Today M05.9 - Rheumatoid arthritis with rheumatoid factor, unspecified, Z79.631 - intermediate accountant (current) use of antimetabolite agent Comprehensive Met. Panel Today M05.9 - Rheumatoid arthritis with rheumatoid factor, unspecified, Z79.631 - [facility] (current) use of antimetabolite agent Erythrocyte Sedimentation Rate Today M05.9 - Rheumatoid arthritis with rheumatoid factor, unspecified, Z79.631 - [facility] (current) use of antimetabolite agent C Reactive Protein Today M05.9 - Rheumatoid arthritis with rheumatoid factor, unspecified, Z79.631 - [facility] (current) use of antimetabolite agent Medications: Refilled folic acid 1 mg PO DAILY 90 tabs 1RF Discontinued nirmatrelvir-ritonavir 150-100 mg (Paxlovid) Discontinued Reason: Patient Completed Course take ONE 150 mg tablet of nirmatrelvir with ONE 100 mg tablet of ritonavir twice daily for 5 days PO 20 ea 0RF Resumed methotrexate sodium Take 4 tabs on Saturday and 4 tabs on Saturday 20 mg (8 x 2.5 mg) PO QWEEK 128 tabs 0RF methotrexate sodium 25 mg (10 x 2.5 mg) PO QWEEK 130 tabs 0RF Coding Level of Care Code Est Pt Level 4 (35403) Diagnoses Seropositive rheumatoid arthritis M05.9 Age-related osteoporosis without fracture M81.8 intermediate accountant methotrexate user Z79.631
== END 2024-04-16 15:29 | disposition home or self-care (01) ==
PROVIDERS: PCP Internal Medicine; Visit Provider Student in an Organized Health Care Education/Training Program
DX: M05.79 Rheumatoid arthritis with rheumatoid factor of multiple sites without organ or systems involvement (principal); M81.8 Other osteoporosis without current pathological fracture; Z79.631 Long term (current) use of antimetabolite agent
CPT/HCPCS: 99214

== ENCOUNTER → 2024-04-16 13:57 | Outpatient (BNVA) | payer OTHER, SELFPAY | PROVIDERS: PCP Internal Medicine; Visit Provider Student in an Organized Health Care Education/Training Program | DX: M05.9 Rheumatoid arthritis with rheumatoid factor, unspecified (principal); M81.8 Other osteoporosis without current pathological fracture; Z79.631 Long term (current) use of antimetabolite agent | CPT/HCPCS: 99212 ==

== ENCOUNTER 2024-08-06 10:42 | Outpatient (REF) | payer OTHER, SELFPAY ==
[2024-08-06 10:55] LABS: MANUAL DIFF FLAG NO
--- OUTSIDE RECORDS SUMMARY | 2024-08-06 11:21 | XMS_ITS | Data Portability ---
Author Organization [employer] [facility], [employer] Address [address] [place] [phone] Care Team Providers Care Project Estimator Name Role Phone KRISSY SALMERON Primary Care Provider Assessment Encounter Date Assessment Date Assessment LastModified by Organization Details LastModified Time 03/21/2023 03/21/2023 service called for chest pain found 62 susie suffered mechanical fall 1d prior impact to chest wall now 8/10 sharp chest pain, worse with inspiration VSS lung exam unremarkable as reported #Chest wall pain edu pt unlikely rib fracture however, CXR is definitive no need for emergent imaging at this time recc urgent or PCP clinic [facility] Not available 03/21/2023 18:45:48 Plan of Treatment Reminders Order Date Submit Date Provider Last Modified By Organization Details Last Modified Time Details Appointments None record ed. Lab None record ed. Referral None record ed. Procedures None record ed. Surgeries None record ed. Imaging None record ed. Medication Orders None record ed. Patient TargetsNo targets recorded. Patient InstructionsNo instructions recorded. Reason for Referral None Reported. Medical Equipment None Reported. Allergies Allergen ID Allergen Name Allergen Category Reaction Reaction Severity Criticality Documentation Date Start Date Code Code System Note Provider Name and Address Organization Details Recorded Time 8146 Medicinal product containin g penicilli n and acting as antibacte rial agent (product) medicatio n Not available Not available Not available 05/26/2024 28572 05 SNOMED Not Available [facility] - production 03:42:19 Medications Name Sig Start Date Stop Date Status Note LastModified by Organization Details LastModified Time nystatin 100,000 unit/mL oral suspension SHAKE LIQUID AND TAKE 4 ML BY MOUTH FOUR TIMES DAILY FOR 10 DAYS active Not Available Not Available No t Available atorvastatin 20 mg tablet TAKE 1 TABLET BY MOUTH DAILY active Not Available Not Available No t Available polyethylene glycol 3350 17 gram oral powder packet MIX AND DRINK 1 PACKET BY MOUTH DAILY active Not Available Not Available No t Available cetirizine 10 mg tablet TAKE 1 TABLET BY MOUTH DAILY active Not Available Not Available No t Available cefpodoxime 100 mg tablet TAKE 1 TABLET BY MOUTH TWICE DAILY active Not Available Not Available No t Available ibuprofen 800 mg tablet TAKE 1 TABLET BY MOUTH EVERY 8 HOURS NEEDED FOR PAIN active Not Available Not Available No t Available sumatriptan 100 mg tablet TAKE 1/2 TABLET BY MOUTH UP TO TWICE DAILY EVERY 4 HOURS AT ONSET active Not Available Not Available No t Available propranolol ER 60 mg capsule,24 hr,extended release TAKE 1 CAPSULE BY MOUTH TWICE DAILY active Not Available Not Available No t Available tramadol 50 mg tablet TAKE 1 TABLET BY MOUTH FOUR TIMES DAILY NEEDED FOR ANAGLESIA active Not Available Not Available No t Available acetaminophen 500 mg tablet TAKE 1 TABLET BY MOUTH THREE TIMES DAILY active Not Available Not Available No t Available meclizine 25 mg tablet TAKE 1 TABLET BY MOUTH EVERY 8 HOURS NEEDED FOR VERTIGO active Not Available Not Available No t Available docusate sodium 100 mg capsule TAKE 1 CAPSULE BY MOUTH TWICE DAILY active Not Available Not Available No t Available montelukast 10 mg tablet TAKE 1 TABLET BY MOUTH AT BEDTIME active Not Available Not Available No t Available lorazepam 1 mg tablet TAKE 1/2 TABLET BY MOUTH EVERY MORNING AND 1 TABLET BY MOUTH IN THE AFTERNOON AND 1 TABLET BY MOUTH IN THE EVENING NEEDED FOR ANXIETY active Not Available Not Available No t Available azelastine 137 mcg (0.1 %) nasal spray USE 2 SPRAYS IN EACH NOSTRIL TWICE DAILY DIRECTED active Not Available Not Available No t Available zolpidem 10 mg tablet TAKE 1 TABLET BY MOUTH AT BEDTIME NEEDED FOR SLEEP active Not Available Not Available No t Available fluoxetine 20 mg capsule TAKE 1 CAPSULE BY MOUTH EVERY MORNING active Not Available Not Available No t Available Ventolin HFA 90 mcg/actuation aerosol inhaler INHALE 2 PUFFS BY MOUTH EVERY 4 HOURS NEEDED FOR COUGH OR WHEEZING active Not Available Not Available No t Available oxycodone 5 mg tablet active Not Available Not Available No t Available calcium 500 mg (as carbonate)-D3 2.5 mcg (100 unit) chewable tablet CHEW AND SWALLOW ONE TABLET BY MOUTH DAILY active Not Available Not Available No t Available diclofenac 1 % topical gel APPLY 1 GRAM TOPICALLY TO THE AFFECTED AREA FOUR TIMES DAILY NEEDED FOR FOOT PAIN active Not Available Not Available No t Available Wixela Inhub 250 mcg-50 mcg/dose powder for inhalation INHALE 1 PUFF INTO THE LUNGS TWICE DAILY active Not Available Not Available No t Available Vitals Date Recorded Heart rate Body weight Oxygen saturation Oxygen saturation in Arterial blood by Pulse oximetry Body height Body temperature Respiratory rate Systolic blood pressure Diastolic blood pressure Provider Name and Address Organization Details Last Updated DateTime 3 68 /min 90604.6 g 98 % 98 % 167.64 cm 97.4 [degF] 14 /min 135 mm[Hg] 83 mm[Hg] Not Available [facility] - production 3 15:57:00 Social History None recorded. Functional Status None recorded. Mental Status None recorded. Family History Nothing Reported. Medical History No medical history recorded. Gynecological HistoryNo gynecological history recorded. Obstetrics History GPAL:G 0 P 0 0 0 0 Past Encounters Encounter ID Performer Location Encounter Start Date Encounter Closed Date Diagnosis/Indication Diagnosis SNOMED-CT Code Diagnosis ICD10 Code Diagnosis Note [id number] Cate Barry MD [facility] - [facility] [address] [place] [phone] 03/21/2023 15:56:58 03/22/2023 00:25:09 Chest wall pain 803168172 R07.89 Health Concerns Section Related Observation LastModified by Organization Detai ls LastModified Time None Recorded Concern Status LastModified by Organization Details LastModified Time None Recorded Advance Directives Directive None Recorded Payers Encounter Date Sequence Insurance Name Policy Number Policy Raza Covered Member ID Raza Member ID Guarantor Name 03/21/2023 1 [facility] - DOS ON OR AFTER 2022 - DUAL ELIGIBLE - SKILLED NURSING OPTIONS AND ONE CARE (MEDICARE REPLACEMENT/ADV ANTAGE - HMO) Myah Welch [id number] Myah Welch Notes Date Note Type Note Provider Name and Address Organization Details Recorded Time 03/21/2023 text/html [facility] Nursing Assessment: Reason For Request: PT suffered fall yesterday on steps in home>dog got in the way and tripped lost balance, hit her chest in the stairways going up along with her right leg. Bruising and swelling on right leg> chest pain slight swelling. Chief Complaints: Falls, Chest Pain, Pain PMH: COPD/Asthma Allergies: Penicillin Comments: Members spouse calling in to place a referral, member identified via /name. Member who had a fall yesterday, her chest and right leg took most of the impact. Member denies head strike, she does not take blood thinners. Her chest is painful, worse with deep breathing and has some swelling. Her right leg, has a scratch, some bruising and mild swelling. Member aware she will likely need ED for imaging, but would like to proceed with an [facility] visit to be evaluated. ................. ................. ................. ................. ................. ................. ................. ................. ..... Mirror Inspector Note From Khoi Watson: Pt caox3 seated on couch. 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 She states she impacted the edge of the stairs with her chest and her right hernandes. Pt complains of pain on inspiration. Pt denies head trauma or any other injuries, pain or complaints Pt guarding chest with pillow and appears anxious. Lung sounds unremarkable, clear bilat No bruising, nolan, discoloration, deformity or injury noted to chest. Small laceration on right hernandes, not bleeding. Good ROM and CSM in all. advises pt to get a chest ray MI. Pt agrees to go to ED now. Pt advised urgent care and her PCP's office may be able to arrange the test Red flags and pt education discussed. Mirror Inspector Allergies: Penicillin ................. ................. ................. ................. ................. ................. ................. ................. ..... Disposition: Arcelia Barry MD [address] [place] [address],[address] [facility], [place], [phone], [place] [employer] 03/21/2023 18:46:01 OBGyn Episode No OBEpisode recorded.
[2024-08-06 11:37] LABS: Basophils Absolute Auto 0.1 X10*3/uL (0.0-0.2); Basophils Percent Auto 0.8 % (0-2); Eosinophils Absolute Auto 0.1 X10*3/uL (0.0-0.4); Hematocrit 39.9 % (37.0-47.0); Hemoglobin 12.9 g/dl (12.0-16.0); Imm Gran Abs Auto 0.02 X10*3/uL (0.00-0.03); Imm Gran Pct Auto 0.3 % (0.0-0.4); Lymphocytes Absolute Auto 2.7 X10*3/uL (1.2-4.9); Lymphocytes Percent Auto 35.3 % (20-40); Mean Corpuscular HGB Conc 32.3 g/dl (31.0-35.0); Mean Corpuscular Hemoglobin 31.2 pg (27.0-33.0); Mean Corpuscular Volume 96.6 fL (80.0-98.0); Mean Platelet Volume 11.5 fL (9.4-12.3); Monocytes Absolute Auto 0.7 X10*3/uL (0.1-1.2); Monocytes Percent Auto 8.6 % (2-11); Neutrophils Absolute Auto 4.2 x10*3/uL (2.0-8.3); Platelet Count 220 X10*3/uL (160-400); Red Blood Count 4.13 X10*6/uL (4.20-5.50); Red Cell Distribution Width 12.8 % (11.0-16.0); White Blood Count 7.7 X10*3/uL (4.8-10.8)
[2024-08-06 12:16] LABS: Erythrocyte Sedimentation Rate 18 MM/HR (0-20)
[2024-08-06 12:53] LABS: Alanine Aminotransferase 45 U/L (0-31); Albumin Level 4.4 g/dL (3.5-5.0); Alkaline Phosphatase 92 U/L (39-117); Anion Gap 12 (12-20); Aspartate Amino Transferase 28 U/L (5-31); Bilirubin Total 0.5 mg/dL (0.0-1.0); Blood Urea Nitrogen 12 mg/dL (9-16); C Reactive Protein < 0.10 mg/dL (< or = 0.50); Calcium 9.4 mg/dL (8.4-10.2); Carbon Dioxide 25 mmol/L (22-29); Chloride 107 mmol/L (96-108); Estimated Glomerular Filt Rate > 60; Glucose Random 83 mg/dL (60-115); Potassium 4.1 mmol/L (3.3-5.1); Sodium 140 mmol/L (135-145); Total Protein 7.8 g/dL (6.5-8.0)
== END 2024-08-06 10:43 | disposition home or self-care (01) ==
LOC: HO.LAB 10:42
PROVIDERS: PCP Internal Medicine; Visit Provider Student in an Organized Health Care Education/Training Program
DX: M05.9 Rheumatoid arthritis with rheumatoid factor, unspecified (principal); Z79.631 Long term (current) use of antimetabolite agent
CPT/HCPCS: 36415; 80053; 85025; 85652; 86140

== ENCOUNTER 2024-08-11 14:38 | Outpatient (AMB) | payer OTHER, SELFPAY ==
--- NOTE | 2024-08-11 14:44 | A.OFFVIS_ITS ---
Vital Signs 08/11/24 14:49 Height 5 ft 9 in Weight 176 lb 2.389 oz BMI 26.0 BP 130/78 Blood Pressure Location Rt brachial Position Sitting Pulse 82 Pulse Source Pulse Oximeter Pulse Oximetry (%) 99 Oxygen Delivery Method Room Air Intake Visit Reasons: RA Intake Note: Patient presents for RA. Human Resources Compliance Manager Required: Yes Human Resources Compliance Manager Language: Telecommunications Line Installer Services: Human Resources Compliance Manager Offered & Declined Human Resources Compliance Manager Name: Yrn Ayala () Information Interpreted: non-clinical & clinical Customs Compliance Manager: Customs Compliance Manager Present (Yrn Ayala) Accompanied by: Spouse Allergies gabapentin Adverse Reaction (Intermediate, Verified 08/11/24 14:49) Rash Penicillins Adverse Reaction (Intermediate, Verified 08/11/24 14:49) Rash Medication List - Last Reconciled 08/11/24 by Arlen Carrillo MD adalimumab (Humira(CF) Pen) inject one - 40 mg/0.4 mL pen every 2 weeks subcut albuterol sulfate 90 mcg/actuation 2 puffs inhalation Q6H PRN atorvastatin 20 mg PO DAILY cetirizine (All Day Allergy (cetirizine)) 10 mg PO DAILY PRN cholecalciferol (vitamin D3) 50 mcg PO DAILY cyclosporine 0.05% (Restasis) 1 drp ophthalmic (eye) Q12H diclofenac sodium 1% (Arthritis Pain (diclofenac)) 2 grams topical QID diclofenac sodium 75 mg PO BID docusate sodium 100 mg PO BID doxepin 10 mg PO BEDTIME ergocalciferol (vitamin D2) units PO .every week fluoxetine 20 mg PO DAILY fluticasone propion-salmeterol 250-50 mcg/dose (Wixela Inhub) 1 inh inhalation BID lidocaine 5% (Lidoderm) 1 patch topical DAILY lorazepam 1 mg PO BID PRN oxycodone 0 mg PO propranolol ER 60 mg PO DAILY sumatriptan succinate (Imitrex) take 1 tab at onset of headache; if no relief, may repeat 1 tab after at least 2 hrs; max = 2 tabs/24 hrs PO zolpidem 10 mg PO BEDTIME PRN HPI Comments Details: 63-year-old female with seropositive RA returns for follow-up with her . She started Humira after her last visit 3 months ago, she remains on methotrexate 20 mg weekly. She states that she feels much better overall. She has not noticed any side effects to Humira except for some redness and erythema at the injection site. Initial history: 61 y/o F with FM. used to see Dr. Frias before. She was allergic to Gabapentin, Never tried Lyrica. She continues to have the same pain mostly in her neck, upper back and shoulders. No joint swelling. Continues to have fatigue. [facility] Medical History Migraine GERD (gastroesophageal reflux disease) Depression Hyperlipidemia Degenerative disc disease, lumbar Age-related osteoporosis without fracture Fibromyalgia Nephrolithiasis Surgical History History of mammogram H/O total hysterectomy Hx of bilateral breast reduction surgery Hx of colonoscopy History of esophagogastroduodenoscopy (EGD) Family History Father Myocardial infarction Diabetes Coronary artery disease Mother Brain aneurysm Rheumatoid arthritis Gastric cancer Sister Rheumatoid arthritis Social History Household Members: Spouse Alcohol intake: never Patient Tobacco Use Status: Never used Tobacco Current occupational status: disabled Review of Systems Musc Denies arthralgias, Denies joint swelling and Denies stiffness Skin/Breast Reports erythema and Reports rash Physical Exam Vital Signs: Last Vital Signs Pulse 82 08/11/24 14:49 BP 130/78 08/11/24 14:49 Pulse Ox 99 08/11/24 14:49 Oxygen Delivery Method Room Air 08/11/24 14:49 BMI result Body Mass Index 26.0 Const General: cooperative, healthy appearing and comfortable Nutritional Appearance: overweight Orientation/consciousness: patient oriented x3 Limitations: no limitations HEENT Head: Yes normocephalic and Yes atraumatic Mouth: moist mucous membranes Resp Effort & Inspection: normal respiratory effort and able to speak in complete sentences Auscultation: clear to auscultation bilaterally Cardio Rate: regular rate Skin Other: The Humira injection site on her left thigh anteriorly, there is a circular area of erythema, mildly raised skin, warmth and minimal tenderness Neuro General: patient oriented x3 Extrem Other: Right 3rd MCP tenderness without swelling left 2nd MCP minimal swelling and minimal tenderness Mild osteoarthritic changes of both hands 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 bilateral hand landscape photographer strength Normal pain-free range of motion of elbows and shoulders No knee pain with full flexion-extension No knee warmth or swelling bilaterally No ankle swelling or tenderness bilaterally Negative MTP squeeze test bilaterally Assessment & Plan Assessment & Plan (1) Seropositive rheumatoid arthritis: Comment: -ve RF ++CCP dx 10/2023 MTX 10/2023 - DC 07/2024 ineffective and caused transaminitis Humira started 04/2024 effective Code(s): M05.9 - Rheumatoid arthritis with rheumatoid factor, unspecified Category: Medical Plan: This is a 63-year-old female with new onset seropositive RA who returns for follow-up. Doing much better since Humira was started 3 months ago. Keep Humira at 40 mg every other week. 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 Patient fully aware. Advised patient to seek medical care [place] if patient has an infection and advised patient to stop the medication until the infection is resolved. Plan I spent 25 minutes reviewing patient's chart, evaluating patient, ordering diagnostic workup, counseling patient and documenting in the chart Orders: Orders Complete Blood Count Auto Diff 4 Months M05.9 - Rheumatoid arthritis with rheumatoid factor, unspecified, Z79.899 - Other [place] [facility] (current[facility] drug therapy Comprehensive Met. Panel 4 Months M05.9 - Rheumatoid arthritis with rheumatoid factor, unspecified, Z79.899 - Other termite control service representative (current) drug therapy Erythrocyte Sedimentation Rate 4 Months M05.9 - Rheumatoid arthritis with rheumatoid factor, unspecified, Z79.899 - Other [place] [facility] (current) drug therapy C Reactive Protein 4 Months M05.9 - Rheumatoid arthritis with rheumatoid factor, unspecified, Z79.899 - Other [place] [facility] (current) drug therapy Medications: Discontinued folic acid Discontinued Reason: Doctor's Order 1 mg PO DAILY 90 tabs 1RF methotrexate sodium Discontinued Reason: Doctor's Order 20 mg (8 x 2.5 mg) PO QWEEK 96 tabs 0RF Coding Level of Care Code Est Pt Level 4 (44341) Diagnoses Seropositive rheumatoid arthritis M05.9 Age-related osteoporosis without fracture M81.8 High risk medication use Z79.899
[2024-08-11 14:49] VITALS: BP 130/78; PULSE 82; O2SAT 99; BMI 26.0
--- OUTSIDE RECORDS SUMMARY | 2024-08-11 17:13 | XMS_ITS | Data Portability ---
Author Organization [employer] [facility] [place] in - [employer] Address [address] [place] [phone] Care Team Providers Care Procedure Manager Name Role Phone KRISSY SALMERON Primary Care [...] Not available Not available Not available 05/26/2024 [id number] SNOMED Not Available [employer] - production [...] Details Last Updated DateTime 3 68 /min 85885.6 g 98 % 98 % 167.64 cm [...] SNOMED-CT Code Diagnosis ICD10 Code Diagnosis Note [id number] Cate Barry MD Main - [facility] [address] [place] [phone] 03/21/2023 15:56:58 03/22/2023 00:25:09 Chest wall pain 886991677 R07.89 Health Concerns Section Related Observation LastModified by Organization Detai ls LastModified Time None Recorded Concern Status LastModified by Organization Details LastModified Time None Recorded Advance Directives Directive None Recorded Payers Encounter Date Sequence Insurance Name Policy Number Policy Raza Covered Member ID Raza Member ID Guarantor Name 03/21/2023 1 [facility] - DOS ON OR AFTER 2022 - DUAL ELIGIBLE - CORRECTION OPTIONS AND ONE CARE (MEDICARE REPLACEMENT/ADV ANTAGE - HMO) Myah Welch [id number] Myah Welch Notes Date Note Type Note [...] but would like to proceed with an [facility] visit to be evaluated. ................. ................. ................. ................. ................. ................. ................. ................. ..... Roughing Mill Operator Note From Khoi Watson: Pt caox3 seated on couch. Pt reports, through on scene nuclear engineer, that she fell from standing outside after [...] test Red flags and pt education discussed. Roughing Mill Operator Allergies: Penicillin ................. ................. ................. ................. ................. ................. ................. ................. ..... Disposition: Arcelia Barry MD [address] [place] [address],[address] [facility], [place], [phone], [email or web address] 03/21/2023 18:46:01 OBGyn Episode No OBEpisode recorded.
== END 2024-08-11 15:01 | disposition home or self-care (01) ==
PROVIDERS: PCP Internal Medicine; Visit Provider Student in an Organized Health Care Education/Training Program
DX: M05.79 Rheumatoid arthritis with rheumatoid factor of multiple sites without organ or systems involvement (principal); M81.8 Other osteoporosis without current pathological fracture; Z79.899 Other long term (current) drug therapy
CPT/HCPCS: 99214

== ENCOUNTER → 2024-08-11 14:38 | Outpatient (BNVA) | payer OTHER, SELFPAY | PROVIDERS: PCP Internal Medicine; Visit Provider Student in an Organized Health Care Education/Training Program | DX: M05.9 Rheumatoid arthritis with rheumatoid factor, unspecified (principal); M81.8 Other osteoporosis without current pathological fracture; Z79.899 Other long term (current) drug therapy | CPT/HCPCS: 99212 ==

== ENCOUNTER 2024-12-07 14:24 | Outpatient (REF) | payer OTHER, SELFPAY ==
--- OUTSIDE RECORDS SUMMARY | 2024-12-07 14:36 | XMS_ITS | Data Portability ---
Author Organization [employer] [facility] [place] - [employer] Address [address] [place] [phone] Care Team Providers Care Gravel Machine Operator Name Role Phone KRISSY SALMERON Primary Care [...] and Address Organization Details Recorded Time 8146 Product containin g penicilli n (product) medicatio n Not available Not available Not available 05/26/2024 [id number] SNOMED Not Available [facility] - production 03:42:19 [...] Details Last Updated DateTime 3 68 /min 49326.6 g 98 % 98 % 167.64 cm [...] SNOMED-CT Code Diagnosis ICD10 Code Diagnosis Note [id number] Ctae Barry MD Main - [facility] [address] [place] [phone] 03/21/2023 15:56:58 03/22/2023 00:25:09 Chest wall pain [id number] R07.89 Health Concerns Section Related Observation LastModified by Organization Detai ls LastModified Time None Recorded Concern Status LastModified by Organization Details LastModified Time None Recorded Advance Directives Directive None Recorded Payers Insurance Date Sequence Insurance Name Policy Number Policy Raza Covered Member ID Raza Member ID Guarantor Name 02/20/2024 1 [facility] - DOS ON OR AFTER 2022 - DUAL ELIGIBLE - SNF OPTIONS AND ONE CARE (MEDICARE REPLACEMENT/ADV ANTAGE - HMO) Myah Welch [id number] Myah Welch Notes Date Note Type Note [...] but would like to proceed with an [facility] visit to be evaluated. ................. ................. ................. ................. ................. ................. ................. ................. ..... Publications Sales Representative Note From Khoi Watson: Pt caox3 seated on couch. Pt reports, through on scene full time staff interpreter, that she fell from standing outside after [...] test Red flags and pt education discussed. Publications Sales Representative Allergies: Penicillin ................. ................. ................. ................. ................. ................. ................. ................. ..... Disposition: Fulfilled Cate Barry MD [address] [facility],[address], [place], [phone], [employer] FRANCINE BERRIOS 03/21/2023 18:46:01 OBGyn Episode No OBEpisode recorded.
--- OUTSIDE RECORDS SUMMARY | 2024-12-07 14:36 | XMS_ITS | Clinical Summary ---
Author Organization [facility] [address] [place] [address] [place] [phone] Phone Care Team Providers Care Projection Engineer Name Role Phone Jose Dean MD Primary Care Provider [phone] Allergies Active Allergy Reactions Criticality Noted Date Comments Gabapentin Rash Medium 12/23/2018 Penicillins Rash Medium 04/07/2009 Medications acetaminophen (TYLENOL) 500 mg tablet Take 1 tablet (500 mg total) by mouth every 6 (six) hours if needed for mild pain. 05/15/20 22 Active albuterol 2.5 mg /3 mL (0.083 %) nebulizer solution Inhale 3 mL (2.5 mg total) by mouth every 4 (four) hours if needed for wheezing or shortness of breath. 04/24/20 24 Active azelastine (ASTELIN) 137 mcg (0.1 %) nasal spray Administer 2 sprays into each nostril 2 (two) times a day. 07/23/20 23 Active cholecalciferol (VITAMIN D-3) 50 mcg (2,000 unit) tablet Take 1 tablet (2,000 Units total) by mouth 1 (one) time each day. 08/19/19 24 Active UNABLE TO FIND Inhale by mouth. CPAP Active diclofenac (VOLTAREN) 1 % topical gel Apply 1 g topically 4 (four) times a day if needed. LEFT FOOT PAIN 08/24/19 23 Active doxepin (SINEquan) 10 mg capsule Take 1 capsule (10 mg total) by mouth at bedtime. 08/20/19 22 Active FLUoxetine (PROzac) 20 mg capsule Take 1 capsule (20 mg total) by mouth 1 (one) time each day in the morning. 06/07/20 23 Active adalimumab (Humira,CF, Pen) 40 mg/0.4 mL pen Inject 0.4 mL (40 mg total) under the skin. 04/22/20 24 Active LORazepam (ATIVAN) 1 mg tablet Take 1 tablet (1 mg total) by mouth 3 (three) times a day if needed for anxiety. 12/01/19 22 Active omeprazole OTC (PriLOSEC OTC) 20 mg EC tablet Take 1 tablet (20 mg total) by mouth 1 (one) time each day. 09/02/19 24 Active ibuprofen (ADVIL,MOTRIN) 600 mg tablet Take 1 tablet (600 mg total) by mouth every 8 (eight) hours if needed for mild pain or moderate pain. 90 tablet 1 06/10/20 24 Active cetirizine (ZyrTEC) 10 mg tablet TAKE 1 TABLET BY MOUTH DAILY 90 tablet 3 09/04/19 25 Active calcium carbonate-vitam in D (Calcium 500 + D) 500 mg-5 mcg (200 unit) per tablet Take 1 tablet by mouth 1 (one) time each day. 90 tablet 1 09/15/19 25 Active meclizine (ANTIVERT) 25 mg tablet Take 1 tablet (25 mg total) by mouth 3 (three) times a day if needed for dizziness. 90 tablet 1 09/15/19 25 Active alendronate (FOSAMAX) 70 mg tablet Take 1 tablet (70 mg total) by mouth every 7 (seven) days. Take in the morning with a full glass of water, on an empty stomach, and do not take anything else by mouth or lie down for the next 30 min. 12 each 1 09/15/19 25 026 Active Additional Information Patient not taking.Reported on 11/25/2024 atorvastatin (LIPITOR) 40 mg tablet Take 1 tablet (40 mg total) by mouth 1 (one) time each day. 90 tablet 1 09/16/19 25 025 Active zoledronic acid (RECLAST) 5 mg/100 mL piggybackIndica tions:Age-relat ed osteoporosis without current pathological fracture Infuse 100 mL (5 mg total) into a venous catheter 1 (one) time for 1 dose. 100 mL 09/18/19 25 Active montelukast (SINGULAIR) 10 mg tablet TAKE 1 TABLET BY MOUTH AT BEDTIME 90 tablet 3 10/08/19 25 Active polyethylene glycol (PEG) 17 gram/dose oral powder DISSOLVE 1 PACKET(17 GRAMS) IN LIQUID AND DRINK BY MOUTH DAILY 510 g 1 11/05/19 25 Active omeprazole (PriLOSEC) [address] capsule TAKE ONE CAPSULE BY MOUTH DAILY 90 capsule 1 11/07/19 25 Active atorvastatin (LIPITOR) 20 mg tablet TAKE 1 TABLET BY MOUTH AT BEDTIME 90 tablet 1 11/07/19 25 Active Additional Information Patient not taking.Reported on 11/25/2024 Wixela Inhub 100-50 mcg/dose diskus inhaler INHALE 1 PUFF INTO THE LUNGS TWICE DAILY 60 each 1 12/03/19 25 Active fluticasone propion-salmete roL (Wixela Inhub) 100-50 mcg/dose diskus inhaler INHALE 1 PUFF INTO THE LUNGS TWICE DAILY 60 each 1 10/06/19 25 025 Discontinued Active Problems Problem Noted Date Diagnosed Date Vitamin D deficiency 05/19/2024 Vaginal atrophy 06/26/2023 Overview (05/19/2024): Last Assessment & Plan: LIkely the cause of her symptoms. She was counseled re: option of personal lubricants, coconut oil and localized estradiol therapy. She desires to try coconut oil first. Vasomotor symptoms due to menopause 06/26/2023 Overview (05/19/2024): Last Assessment & Plan: Counseled the patient re: options for treatment of vasomotor sx. Explained there are herbal supplements which have not been shown to be effective over placebo and are not FDA monitored for dose and side effect, but can be helpful for some women. Also discussed option for Paxil, Effexor and Clonidine and reviewed their expected SE. I discussed hormone therapy and reviewed the findings of the [facility]. I discussed risks including cardiovascular disease- MA, DVT, stroke. I discussed small increased risk of breast cancer in women with uterus who use progestin for endometrial protection. I explained risk of DVT can be decreased by taking estradiol transdermally. I explained that risk of heart disease in I was highest in women who were 10 years or more out from menopause. She was counseled that I would generally recommend trying a non-hormonal method without cardiovascular risks first. She voiced understanding of my counseling and desired towork on some natural options. Obstructive sleep apnea 08/03/2022 Overview (05/19/2024): [facility] Home Sleep Apnea Test: Date 02/08/2022; BMI 26.4; AHI 19; average oxygen saturation 95% (lowest 77% without saturations <88% for 5% or more of study) - Obstructive Sleep Apnea - moderate; without sleep related hypoventilation by 2021 home sleep apnea test. Last Assessment & Plan: Started on CPAP 6-16cm with [employer] on 07/2022 Decreased her pressure on 10/15/22 to 6--10cm, continues to be uncomfortable but her AHI 0.8 Decreased pressure on 01/22/2023 to 5-8cm but her AHI has increased above 5, will monitor. Nocturnal hypoxia 08/03/2022 Overview (05/19/2024): 02/08/2022 HST showed oxygen keila 77%. 15min(3%) <88%. Microcalcification of breast 01/22/2022 Hematuria 08/21/2021 Overview (05/19/2024): Follows with [facility] urology Nephrolithiasis 08/21/2021 Overview (05/19/2024): Follows with [facility] urolog Age-related osteoporosis wit hout current pathological fracture 11/17/2018 Overview (05/19/2024): Previous treatment (~1year) with [facility] zoledronic acid infusion: April 2019, scheduled again for 02/24/2021 BMD 10/14 showed Tscores: Hip -2.6, Spine - 2.3 Urinary incontinence 02/15/2011 Colon polyps 10/19/2010 Overview (05/19/2024): diagnosed 2010, per GI q3y colonoscopy DDD (degenerative disc disease), lumbar 07/31/19 11 Fibromyalgia 06/02/2010 Hyperlipidemia 08/22/2009 Depression 07/11/2009 Overview (05/19/2024): F/u [address] GERD (gastroesophageal reflux disease) 9 Migraine 04/07/2009 Encounters Date Type Department Care Team Description 11/25/2024 2:00 PM EDT Office Visit Pulmonolgy - [place] [address] [facility] [address] [place] [phone] Laura Frye NP Obstructive sleep apnea (Primary Dx); Nocturnal hypoxia; Oral dryness 2024 12:42 PM EDT - 2024 11:59 PM EDT Hospital Encounter Radiology Department [address] [phone] Encounter for screening mammogram for breast cancer Discharge Disposition: Home or Self Care 10/09/2024 12:48 PM EDT - 10/09/2024 11:59 PM EDT Hospital Encounter [facility] [address] [facility] 2nd [place] [phone] Jazmyne Martinez MD Age-related osteoporosis without current pathological fracture (Primary Dx) Discharge Disposition: Home or Self Care 09/23/2024 Telephone Endocrinology [address] [phone] Goldie Terrazas [place] Appointment ([facility]) 09/18/2024 11:15 AM EST Office Visit [address] [phone] Jazmyne Martinez MD Age-related osteoporosis without current pathological fracture (Primary Dx) 09/18/2024 Telephone Adult Medicine [address] [phone] Jose Dean MD FYI 09/15/2024 2:00 PM EST Office Visit Adult Medicine [address] [phone] Jose Dean MD Pure hypercholesterolemia (Primary Dx); Encounter for long-term (current) use of medications; Osteoporosis, unspecified osteoporosis type, unspecified pathological fracture presence; Rheumatoid arthritis, involving unspecified site, unspecified whether rheumatoid factor present ([facility] V24, [facility] V28) from Last 3 Months Immunizations Name Administration Dates Next Due H1N1 Inj Preservative Free 07/11/2009 Influenza Quadravalent, MDCK , 0.5ml, preservative free (Flucelvax) 6mo and older 04/20/2021,04/17/2019,06/09/2018 Influenza trivalent, 0.5mL, preservative free (Fluarix; FluLaval; Fluzone) ages 6mo and older (Afluria) 3 years and older 04/16/2020 Influenza trivalent, MDCK, 0 .5mL, preservative free (Flucelvax) 6mo and older 06/05/2024 Influenza trivalent, with pr eservative (Fluzone; Afluria) 6mo and older 04/27/2013,06/02/2010,04/07/2009 Influenza, Unspecified 05/06/2022 Moderna SARS-CoV-2 COVID-19, mRNA, LNP-S, preservative free 06/24/2022,07/17/2021 PPD Test 07/12/2010 Tdap Tetanus diptheria acell ular pertussis (Boostrix; Adacel) 7yo and older 04/20/2021,04/07/2009 Surgical History Surgery Date Site/Laterality Comments OTHER SURGICAL HISTORY PROCEDURE: MA TOTAL ABDOMINAL HYSTERECT W/WO RMVL TUBE OVARY ESOPHAGOGASTRODUODENOSCOPY 10/03/2009 PROCEDURE: MA EGD TRANSORAL BIOPSY SINGLE/MULTIPLE; COMMENT: Esophagus normal-biopsy, gastritis-biopsy, normal SB. gastric bx: chronic gastritis (Hpylori-). Esophagus bx: Normal COLONOSCOPY 10/16/10 PROCEDURE: HISTORICAL COLONOSCOPY; COMMENT: adenomas; repeat in three years BREAST REDUCTION PROCEDURE: MA BREAST REDUCTION; COMMENT: 2015 Medical History Medical History Date Comments GERD (gastroesophageal reflux disease) 9 DX:GERD (gastroesophageal reflux disease) Migraine 04/07/2009 DX:Migraine Depression 07/11/2009 DX:Depression H. pylori infection DX:H. pylori infection Hyperlipidemia DX:Hyperlipidemi a Fibromyalgia 06/02/2010 DX:Fibromyalgia DDD (degenerative disc disease), lumbar DX:DDD (degenerative disc disease), lumbar Colon polyps 10/19/2010 DX:Colon polyps Vitamin D deficiency DX:Vitamin D deficiency Renal calculi DX:Renal calculi Family History Medical History Relation Name Comments No Known Problems Brother Diabetes Father Heart attack Father Brain Aneurysm Mother Other: gastric ca Mother Other: rheumatoid arthritis Mother No Known Problems Sister Breast cancer Neg Hx Relation Name Status Comments Brother Alive Father (Age 52) cad Mother (Age 63) Sister Alive Social History Tobacco Use Types Packs/Day Years Used Date Smoking Tobacco: Never Smokeless Tobacco: Never Tobacco Cessation:Counseling Given: Not Answered Alcohol Use Standard Drinks/Week Comments No 0 (1 standard drink = 0.6 oz pur e alcohol) Comments No Sex and Gender Information Value Date Recorded Sex Assigned at Female 10/09/2024 12:44 PM EDT Legal Sex Female 1:18 AM EST Gender Identity Female 10/09/2024 12:44 PM EDT Sexual Orientation Choose not to disclose 2024 12:44 PM EDT Obstetrics History Para Term AB IAB SAB Ectopic Multiple Livin g Live Births 4 4 4 4 Date Outcome GA Total Labor Labor/2nd/3rd Weight Sex Type Anes PTL Nola A1 A5 Name Clin Term Term Term Term Last Filed Vital Signs Vital Sign Reading Time Taken Comments Blood Pressure 124/60 11/25/2024 1:57 PM EDT Pulse 81 11/25/2024 1:57 PM EDT Temperature 36.6 ??C (97.9 ??F) 11/25/2024 1:57 PM ED T Respiratory Rate 16 11/25/2024 1:57 PM EDT Oxygen Saturation 99% 11/25/2024 1:57 PM EDT Inhaled Oxygen Concentration - - Weight 80.6 kg (177 lb 9.6 oz) 11/25/2024 1:57 P M EDT Height 175.3 cm (5' 9 ) 11/25/2024 1:57 PM EDT Body Mass Index 26.23 11/25/2024 1:57 PM EDT Plan of Treatment Upcoming Encounters Date Type Department Care Team (Late st Contact Info) Description 03/08/2025 2:20 PM EDT Office Visit Pulmonolgy - [place] [address] [facility] [address] [place] [phone] Laura Frye NP [address] [facility] [address] [place] [address] 03/25/2025 1:00 PM EDT Office Visit Adult Medicine [facility] [address] [place] [address] Jose Dean MD [address] [place] [address] 09/20/2025 1:15 PM EST Office Visit Endocrinology [address] [phone] Jazmyne Martinez MD [address] [place] [address] Health Maintenance Due Date Last Done Comments Pneumococcal Vaccine: 50+ Years (1 of 2 - PCV) 10/11/1979 Pneumococcal Vaccine: Pediatrics (0 to 5 Years) and At-Risk Patients (6 to 64 Years) (1 of 2 - PCV) 10/11/1979 Depression Screening 07/07/2022 HIV Screening 07/07/2022 Medicare Annual Wellness Visit 07/07/2022 Social Influencers of Health Screening 07/07/2022 COVID-19 Vaccine ( season) 2024 05/14/2023, 06/24/2022, 07/17/2021, Additional history exists Breast Cancer Screening 2026 10/11/19, 03/05/2023, 02/09/2023, Additional history exists Cholesterol Screening (Lipid Panel) 09/15/2029 09/15/2024, 04/10/2024, 04/10/2024 DTaP,Tdap,and Td Vaccines (4 - Td or Tdap) 04/20/2031 04/20/2021, 02/15/2011, 04/07/2009 Colorectal Cancer Screening: Colonoscopy 12/07/2031 12/06/2021 Osteoporosis Screening (Bone Density Screening) 10/22/2033 10/23/2023, 10/22/2018 Hepatitis C Screening Completed 12/23/2018 Zoster Vaccines Completed 10/09/2021, 08/06/2021 RSV Immunization Adult Patients Completed 09/14/2023 Influenza Vaccine Completed 06/05/2024, , 06/24/2022, Additional history exists HIB Vaccines Aged Out No longer eligi ble based on patient's age to complete this topic HPV Vaccines Aged Out No longer eligi ble based on patient's age to complete this topic Hepatitis A Vaccines Aged Out No long er eligible based on patient's age to complete this topic Hepatitis B Vaccines Aged Out No long er eligible based on patient's age to complete this topic IPV Vaccines Aged Out No longer eligi ble based on patient's age to complete this topic MMR Vaccines Aged Out No longer eligi ble based on patient's age to complete this topic Meningococcal ACWY Vaccine Aged Out N o longer eligible based on patient's age to complete this topic Meningococcal B Vaccine Aged Out No l onger eligible based on patient's age to complete this topic RSV Immunization Patients Under 20 months Aged Out No longer eligible based on patient's age to complete this topic Varicella Vaccines Aged Out No longer eligible based on patient's age to complete this topic Procedures Procedure Name Priority Date/Time Associated Diagnosis Comments HOME SLEEP TEST Routine 11/20/2024 3:24 PM EDT MG MAMMO DIGITAL SCREENING W DAJUAN BILAT Routine 2024 12:55 PM EDT Encounter for screening mammogram for breast cancer LIPID PANEL WITH REFLEX TO DIRECT LDL Routine 09/15/2024 2:00 PM EST Pure hypercholesterolemia COMPREHENSIVE METABOLIC PANEL Routine 09/15/2024 2:00 PM EST Encounter for long-term (current) use of medications DXA BONE DENSITY STUDY 1+ SITS AXIAL SKEL Routine 10/23/2023 1:26 PM EDT Age-related osteoporosis without current pathological fracture COLONOSCOPY Routine 12/06/2021 HEPATITIS C SCREENING Routine 12/23/2018 from Last 3 Months or Most Recently Relevant to Health Maintenance Results * Home sleep test (11/20/2024 3:24 PM EDT) us Historical Provider SLEEP CENTER ORDERABLES F inal Result * MG Mammo Digital Screening w Dajuan bilat (2024 12:55 PM EDT) Anatomical Region Laterality Modality Breast Bilateral Mammography 10/12/2024 6:26 PM EDT Impressions 10/12/2024 6:28 PM EDT No mammographic evidence of malignancy. BREAST DENSITY: B - There are scattered areas of fibroglandular density. BI-RADS CATEGORY: 2 - BENIGN RECOMMENDATION: Screening bilateral mammogram is recommended in 1 year. MAMMO LOCATION: [facility], [address] [place] [address], [facility], . -------- FINAL REPORT -------- Dictated By: Nataliia Julien Dictated Date: 10/12/2024 18:26 ET Assigned Physician: Nataliia Julien Reviewed and Electronically Signed By: Nataliia Julien Signed Date: 10/12/2024 18:28 ET Workstation ID: [id number] Transcribed By: Self Edit Transcribed Date: 10/12/2024 18:26 ET Narrative 10/12/2024 6:28 PM EDT EXAM: Screening Mammogram CLINICAL: 64 years old, Female, routine annual exam. ??History of bilateral reduction mammoplasty. COMPARISON: 02/09/2023 and as far back as 01/21/2021 ?? TECHNIQUE: Bilateral MLO and CC views were obtained digitally with 3-D mammogram (digital breast tomosynthesis). Computer-aided detection was utilized in evaluation of this exam (CAD). FINDINGS: Stable bilateral postsurgical changes of reduction mammoplasty. ??No new suspicious mass, architectural distortion, or suspicious calcifications. Procedure Note Nataliia Julien MD - 10/12/2024 EXAM: Screening Mammogram CLINICAL: 64 years old, Female, routine annual exam. History of bilateralreduction mammoplasty. COMPARISON: 02/09/2023 and as far back as 01/21/2021 TECHNIQUE: Bilateral MLO and CC views were obtained digitally with 3-Dmammogram (digital breast tomosynthesis). Computer-aided detection wasutilized in evaluation of this exam (CAD). FINDINGS: Stable bilateral postsurgical changes of reduction mammoplasty. No newsuspicious mass, architectural distortion, or suspicious calcifications. IMPRESSION: No mammographic evidence of malignancy. BREAST DENSITY: B - There are scattered areas of fibroglandular density. BI-RADS CATEGORY: 2 - BENIGN RECOMMENDATION: Screening bilateral mammogram is recommended in 1 year. MAMMO LOCATION: [facility], [address] [place] [address], [id number], . -------- FINAL REPORT -------- Dictated By: Nataliia Julien Dictated Date: 10/12/2024 18:26 ET Assigned Physician: Nataliia Julien Reviewed and Electronically Signed By: Nataliia Julien Signed Date: 10/12/2024 18:28 ET Workstation ID: [id number] Transcribed By: Self Edit Transcribed Date: 10/12/2024 18:26 ET Jose Dean MD IM BI PROCEDURES Final Result * (ABNORMAL) Lipid panel with reflex to direct LDL (09/15/2024 2:00 PM EST) Cholesterol 280(H) 0 - 200 mg/dL LAB CHEMISTRY METHOD 09/15/2024 5:19 PM [facility] Triglycerides 133 0 - 150 mg/dL LAB CHEMISTRY METHOD 09/15/2024 5:19 PM [facility] HDL 74 >=40 mg/dL LAB CHEMISTRY METHOD 09/15/2024 5:19 PM [facility] LDL Calculated 179(H) 0 - 100 mg/dL LAB CHEMISTRY METHOD 09/15/2024 5:19 PM [facility] VLDL Cholesterol Alessio 26.6 mg/dL LAB CHEMISTRY METHOD 09/15/2024 5:19 PM [facility] Non HDL Chol. (LDL+VLDL) 206(H) <145 mg/dL LAB CHEMISTRY METHOD 09/15/2024 5:19 PM [facility] Chol/HDL Ratio 3.8 0.0 - 4.4 LAB CHEMISTRY METHOD 09/15/2024 5:19 PM [facility] Blood Venous blood specimen / Unknown Venipuncture / Unknown 09/15/2024 2:00 PM EST 09/15/2024 2:00 PM EST us Jose Dean MD LAB BLOOD ORDERABLES Final Resu lt [facility] [address] [place] [address], [place] [phone] * (ABNORMAL) Comprehensive metabolic panel (09/15/2024 2:00 PM EST) Sodium 137 133 - 145 mmol/L LAB CHEMISTRY METHOD 09/15/2024 5:20 PM [facility] Potassium 3.9 3.5 - 5.5 mmol/L LAB CHEMISTRY METHOD 09/15/2024 5:20 PM [facility] Chloride 105 96 - 110 mmol/L LAB CHEMISTRY METHOD 09/15/2024 5:20 PM [facility] CO2 30 21 - 32 mmol/L LAB CHEMISTRY METHOD 09/15/2024 5:20 PM [facility] Anion Gap 2(L) 3 - 11 LAB CHEMISTRY METHOD 09/15/2024 5:20 PM [facility] Glucose 88 70 - 100 mg/dL LAB CHEMISTRY METHOD 09/15/2024 5:20 PM [facility] BUN 15 5 - 25 mg/dL LAB CHEMISTRY METHOD 09/15/2024 5:20 PM [facility] Creatinine 0.72 0.50 - 1.10 mg/dL LAB CHEMISTRY METHOD 09/15/2024 5:20 PM EST [facility] eGFR 94 >=60 mL/min/1. 73m2 LAB CHEMISTRY METHOD 09/15/2024 5:20 PM [facility] Comment:Calculation based on the??Chronic Kidney Disease Epidemiology Collaboration (CKD-EPI) equation refit??without adjustment for race. BUN/Creatinine Ratio 20.8 LAB CHEMISTRY METHOD 09/15/2024 5:20 PM [facility] Calcium 9.7 8.5 - 10.5 mg/dL LAB CHEMISTRY METHOD 09/15/2024 5:20 PM [facility] AST (SGOT) 12 10 - 42 unit/L LAB CHEMISTRY METHOD 09/15/2024 5:20 PM [facility] ALT (SGPT) 20 10 - 60 unit/L LAB CHEMISTRY METHOD 09/15/2024 5:20 PM [facility] Alkaline Phosphatase 106 42 - 121 unit/L LAB CHEMISTRY METHOD 09/15/2024 5:20 PM [facility] Total Protein 7.8 6.0 - 8.0 g/dL LAB CHEMISTRY METHOD 09/15/2024 5:20 PM [facility] Albumin 4.0 3.2 - 5.0 g/dL LAB CHEMISTRY METHOD 09/15/2024 5:20 PM [facility] Total Bilirubin 0.5 0.0 - 1.4 mg/dL LAB CHEMISTRY METHOD 09/15/2024 5:20 PM [facility] Blood Venous blood specimen / Unknown Venipuncture / Unknown 09/15/2024 2:00 PM EST 09/15/2024 2:00 PM EST us Jose Dean MD LAB BLOOD ORDERABLES Final Resu lt [facility] [address] [place] [address], * DXA BONE DENSITY STUDY 1+ SITS AXIAL SKEL (10/23/2023 1:26 PM EDT) Anatomical Region Laterality Modality Bone Densitometr y 09/17/2023 1:46 PM EST Narrative 10/24/2023 9:54 AM EDT BONE DENSITY ? Lumbar Spine T-score is -2.1 ?? (SD relative to 20-29 y/o adult) Z-score is -0.5 ??(SD relative to age matched peers) This is consistent with osteopenia by criteria defined by the WHO. Left Hip T-score is -3.0 Z-score is -1.7 This is consistent with osteoporosis by criteria defined by the WHO. Comparison exam(s): no statistically significant change in the bone density of the hip and lumbar spine when compared to most recent bone density examination ?? Confidence level is +/-95%. Impression: Based on the World Health Organization criteria, Myah Welch should be classified as having osteoporosis. The [facility] Department of Internal Medicine recommends using National Osteoporosis Foundation (NOF) guidelines in treatment decisions related to osteoporosis. NOF guidelines suggest considering treatment for postmenopausal women and men aged 50 or older presenting with the following: History of hip or vertebral fracture. T-score less than or equal to -2.5 (DXA) at the femoral neck, total hip, or spine, after appropriate evaluation to exclude secondary causes. Low bone mass (T-score between -1.0 and -2.5 at the femoral neck or spine) AND a 10-year probability of a hip fracture greater than or equal to 3% OR a 10-year probability of a major osteoporosis-related fracture greater than or equal to 20% based on the [place]-adapted WHO algorithm Please note that all treatment decisions require clinical judgment and consideration of individual patient factors, including patient preferences, co-morbidities, previous drug use, risk factors not captured in the FRAX model (e.g., frailty, falls, vitamin D deficiency, increased bone turnover, interval significant decline in bone density) and possible under- or over-estimation of fracture risk by FRAX. Procedure Note Monica Anderson MD - 03/16/2024 BONE DENSITY Lumbar Spine T-score is -2.1 (SD relative to 20-29 y/o adult) Z-score is -0.5 (SD relative to age matched peers) This is consistent with osteopenia by criteria defined by the WHO. Left Hip T-score is -3.0 Z-score is -1.7 This is consistent with osteoporosis by criteria defined by the WHO. Comparison exam(s): no statistically significant change in the bonedensity of the hip and lumbar spine when compared to most recent bonedensity examination Confidence level is +/-95%. Impression: Based on the World Health Organization criteria, Myah Welch should beclassified as having osteoporosis. The [facility] Department of Internal Medicine recommendsusing National Osteoporosis Foundation (NOF) guidelines in treatmentdecisions related to osteoporosis. NOF guidelines suggest consideringtreatment for postmenopausal women and men aged 50 or older presentingwith the following: History of hip or vertebral fracture. T-score less than or equal to -2.5 (DXA) at the femoral neck, total hip,or spine, after appropriate evaluation to exclude secondary causes. Low bone mass (T-score between -1.0 and -2.5 at the femoral neck or spine)AND a 10-year probability of a hip fracture greater than or equal to 3% ORa 10-year probability of a major osteoporosis-related fracture greaterthan or equal to 20% based on the [place]-adapted WHO algorithm Please note that all treatment decisions require clinical judgment andconsideration of individual patient factors, including patientpreferences, co-morbidities, previous drug use, risk factors not capturedin the FRAX model (e.g., frailty, falls, vitamin D deficiency, increasedbone turnover, interval significant decline in bone density) and possibleunder- or over-estimation of fracture risk by FRAX. Jazmyne Martinez MD [facility] [place]ED[place] Final Result * Colonoscopy (12/06/2021) Colonoscopy no interpretation , abstracted Anatomical Region Laterality Modality Other Historical Provider HEALTH MAINTENANCE Final Result * Hepatitis C Screening (12/23/2018) Hepatitis C Screening abstracted us Historical Provider HEALTH MAINTENANCE Final Result from Last 3 Months or Most Recently Relevant to Health Maintenance Insurance [facility] MEDICARE Member Subscriber Plan / Payer (Ef fective 2018-Present) Name:Luz Maria Moisera Relation to Subscriber:Self Name:Luz Maria Moisera Payer ID:[id number] Group ID:[id number] Type:Not on file Address: [place] [address] [address] [place] [phone] Care Teams Projection Engineer Relationship Specialty Start Date End Date Jose Dean MD [address] [place] [phone] PCP - General Internal Medicine 09/18/24
[2024-12-07 14:41] LABS: MANUAL DIFF FLAG NO
[2024-12-07 15:24] LABS: Basophils Absolute Auto 0.1 X10*3/uL (0.0-0.2); Basophils Percent Auto 0.7 % (0-2); Eosinophils Absolute Auto 0.1 X10*3/uL (0.0-0.4); Eosinophils Percent Auto 0.7 % (0-4); Hematocrit 38.1 % (37.0-47.0); Hemoglobin 12.8 g/dl (12.0-16.0); Imm Gran Abs Auto 0.02 X10*3/uL (0.00-0.03); Imm Gran Pct Auto 0.2 % (0.0-0.4); Lymphocytes Absolute Auto 3.3 X10*3/uL (1.2-4.9); Lymphocytes Percent Auto 39.4 % (20-40); Mean Corpuscular HGB Conc 33.6 g/dl (31.0-35.0); Mean Corpuscular Hemoglobin 30.5 pg (27.0-33.0); Mean Corpuscular Volume 90.9 fL (80.0-98.0); Mean Platelet Volume 11.2 fL (9.4-12.3); Monocytes Absolute Auto 0.6 X10*3/uL (0.1-1.2); Monocytes Percent Auto 7.3 % (2-11); Neutrophils Absolute Auto 4.4 x10*3/uL (2.0-8.3); Neutrophils Percent Auto 51.7 % (45-73); Platelet Count 194 X10*3/uL (160-400); Red Blood Count 4.19 X10*6/uL (4.20-5.50); Red Cell Distribution Width 12.6 % (11.0-16.0); White Blood Count 8.5 X10*3/uL (4.8-10.8)
[2024-12-07 16:16] LABS: Erythrocyte Sedimentation Rate 22 MM/HR (0-20)
[2024-12-07 16:22] LABS: Alanine Aminotransferase 15 U/L (0-31); Albumin Level 4.5 g/dL (3.5-5.0); Anion Gap 11 (12-20); Aspartate Amino Transferase 21 U/L (5-31); Bilirubin Total 0.4 mg/dL (0.0-1.0); Blood Urea Nitrogen 13 mg/dL (9-16); C Reactive Protein < 0.04 mg/dL (< or = 0.50); Calcium 9.6 mg/dL (8.4-10.2); Carbon Dioxide 26 mmol/L (22-29); Chloride 107 mmol/L (96-108); Estimated Glomerular Filt Rate > 60; Glucose Random 83 mg/dL (60-115); Potassium 3.6 mmol/L (3.3-5.1); Sodium 140 mmol/L (135-145); Total Protein 7.8 g/dL (6.5-8.0)
[2024-12-07 16:49] LABS: Alkaline Phosphatase 78 U/L (39-117)
[2024-12-08 08:01] LABS: HBS Num1 44.34 mIU/mL (0-7.99); HBc Num1 0.06 S/CO (0.00-0.79); HBsAGNum1 0.32 S/CO (0.00-0.99); Hepatitis A Antibody IgM 0.13 Index (0-0.79); Hepatitis B Core Antibody Nonreactive (Nonreactive); Hepatitis B Surface Antigen Negative (Negative); ~HepC Num1 0.17 S/CO (0.00-0.79); ~Hepatitis A Antibody IgM Nonreactive (Nonreactive); ~Hepatitis B Surface Antibody REACTIVE (Nonreactive); ~Hepatitis C Antibody Nonreactive (Nonreactive)
[2024-12-10 18:34] LABS: TS Negative Control Passed; TS Panel A 0; TS Panel B 0; TS Positive Control Passed; TSpotTB Negative (Negative)
[2024-12-11 14:33] LABS: Vitamin D 25-OH, D2 <4 ng/mL; Vitamin D 25-OH, D3 27 ng/mL; Vitamin D 25-OH, Total 27 ng/mL (30-100)
== END 2024-12-07 14:25 | disposition home or self-care (01) ==
LOC: HO.LAB 14:24
PROVIDERS: Visit Provider Student in an Organized Health Care Education/Training Program
DX: M05.9 Rheumatoid arthritis with rheumatoid factor, unspecified (principal); E55.9 Vitamin D deficiency, unspecified
CPT/HCPCS: 36415; 80053; 82306; 85025; 85652; 86140; 86481; 86704; 86706; 86709; 86803; 87340

== ENCOUNTER 2024-12-08 13:49 | Outpatient (AMB) | payer OTHER, SELFPAY ==
[2024-12-08 14:20] VITALS: BP 132/76; PULSE 101; O2SAT 97; BMI 26.0
--- NOTE | 2024-12-08 14:20 | A.OFFVIS_ITS ---
Vital Signs 12/08/24 14:20 Height 5 ft 9 in Weight 176 lb 2.389 oz BMI 26.0 BP 132/76 Blood Pressure Location Lt brachial Position Sitting Pulse 101 H Pulse Source Pulse Oximeter Temp Source Oral Pulse Oximetry (%) 97 Oxygen Delivery Method Room Air Intake Visit Reasons: RA Intake Note: Patient presents for follow up on RA and lab review. today. She complains of itch when she does her injection, and would like refill of Humira. Stranding Machine Operator Helper Services: Stranding Machine Operator Helper Offered & Declined Stranding Machine Operator Helper Name: Patient's , Yrn. Accompanied by: Spouse Allergies gabapentin Adverse Reaction (Intermediate, Verified 12/08/24 14:23) Rash Penicillins Adverse Reaction (Intermediate, Verified 12/08/24 14:23) Rash Medication List - Last Reconciled 12/08/24 by Keyana Ruano MD adalimumab (Humira(CF) Pen) 40 mg (0.4 mL) subcut Q2W albuterol sulfate 90 mcg/actuation 2 puffs inhalation Q6H PRN atorvastatin 20 mg PO DAILY cetirizine (All Day Allergy (cetirizine)) 10 mg PO DAILY PRN cholecalciferol (vitamin D3) 50 mcg PO DAILY cyclosporine 0.05% (Restasis) 1 drp ophthalmic (eye) Q12H diclofenac sodium 1% (Arthritis Pain (diclofenac)) 2 grams topical QID diclofenac sodium 75 mg PO BID docusate sodium 100 mg PO BID doxepin 10 mg PO BEDTIME ergocalciferol (vitamin D2) units PO .every week fluoxetine 20 mg PO DAILY fluticasone propion-salmeterol 250-50 mcg/dose (Wixela Inhub) 1 inh inhalation BID lidocaine 5% (Lidoderm) 1 patch topical DAILY lorazepam 1 mg PO BID PRN oxycodone 0 mg PO propranolol ER 60 mg PO DAILY sumatriptan succinate (Imitrex) take 1 tab at onset of headache; if no relief, may repeat 1 tab after at least 2 hrs; max = 2 tabs/24 hrs PO zolpidem 10 mg PO BEDTIME PRN HPI Comments Details: Patient is a 64 y.o. female with hyperlipidemia, allergies, hypertension, osteoporosis, fibromyalgia and seropositive rheumatoid arthritis here today for follow up Interval History: Patient last seen 08/11/[address] Carrillo. At that time she was following up for her seropositive rheumatoid arthritis. She was on Humira and methotrexate 20 mg weekly. Due to her elevated transaminases her methotrexate was stopped Today, Patient has not noticed any worsening of her joints since stopping the methotrexate Complaining of neck muscle pain and stiffness, hand pain at the end of the day No prolonged AM stiffness Rheumatologic History: -ve RF ++CCP dx 10/2023 MTX 10/2023 - DC 07/2024 ineffective and caused transaminitis Humira started 04/2024 effective Initial history with Dr. Carrillo: 61 y/o F with FM. used to see Dr. Frias before. She was allergic to Gabapentin, Never tried Lyrica. She continues to have the same pain mostly in her neck, upper back and shoulders. No joint swelling. Continues to have fatigue. Current Rheumatology Medication(s): Humira 40mg SC every 2 weeks Topical diclofenac 1% PFSH Medical History Migraine GERD (gastroesophageal reflux disease) Depression Hyperlipidemia Degenerative disc disease, lumbar Age-related osteoporosis without fracture Fibromyalgia Nephrolithiasis Surgical History History of mammogram H/O total hysterectomy Hx of bilateral breast reduction surgery Hx of colonoscopy History of esophagogastroduodenoscopy (EGD) Family History Father Myocardial infarction Diabetes Coronary artery disease Mother Brain aneurysm Rheumatoid arthritis Gastric cancer Sister Rheumatoid arthritis Social History Household Members: Spouse Alcohol intake: never Patient Tobacco Use Status: Never used Tobacco Current occupational status: disabled Review of Systems Const Details: Review of Systems Constitutional: Denies fever, chills, weight loss ENT: Denies vision changes, eye pain or eye redness, dental caries, dry mouth GI: Denies nausea, vomiting, diarrhea, abdominal pain, change in BM Pulm: Denies SOB, NIETO, hemoptysis, wheezing Cards: Denies chest pain, palpitations Skin: Denies Raynaud's, rash, nail changes, photosensitivity, CELLULAR TOWER CLIMBER: Denies headaches, weakness, paresthesias, recurrent falls MSK: as per HPI All other systems reviewed and are unremarkable except noted above Physical Exam Vital Signs: Last Vital Signs Pulse 101 H 05/13/25 14:20 BP 132/76 12/08/24 14:20 Pulse Ox 97 12/08/24 14:20 Oxygen Delivery Method Room Air 12/08/24 14:20 BMI result Body Mass Index 26.0 Vital signs reviewed Physical Examination CONSTITUITIONAL Patient alert and cooperative. Well appearing and in no apparent painful distress HEENT Conjunctiva and sclera clear. ?Pupils equal round and reactive to light. ?No lymphadenopathy. ? CHEST/RESPIRATORY SYSTEM Normal respiratory effort and able to speak in complete sentences. ?Clear to auscultation bilaterally. ?No crackles, rales, rhonchi, wheezes heard. CARDIAC SYSTEM Regular rate and rhythm. ?S1 and S2 heard no murmurs. ?Radial pulses intact bilaterally MSK Hands: ?Able to make a fist. No synovitis noted to the MCPs, PIPs or DIPs. ?No tenderness to palpation of these joints. synovial hypertrophy noted to the right 2nd MCP Wrists: ?Full range of motion at the wrists without pain. ?No tenderness to pal pation or synovitis noted to the wrists. Elbows: Full range of motion without pain. No tenderness, weakness, swelling, increased warmth or erythema. Shoulders: Full range of active range of motion without pain. No tenderness, weakness, swelling, increased warmth or erythema. Hip bursa: No tenderness to palpation Knees: ?Full range of motion. ?No tenderness, swelling, increased warmth or e rythema.?No effusion or crepitations Ankles: Full range of motion. ?No tenderness, swelling, increased warmth or erythema.? Feet: ?Negative squeeze test. ?No tenderness to palpation or swelling of the MTPs. Tender points:?Tenderness to palpation of the bilateral trapezius but no TTP of the supraspinatus, greater trochanters, anterior costochondral junctions, bilateral gluteal areas, bilateral suboccipital muscle insertions SKIN Skin intact without rashes. Results Reviewed Results Reviewed: Laboratory Tests 12/07/24 14:38 WBC 8.5 RBC 4.19 L Hgb 12.8 Hct 38.1 Plt Count 194 ESR 22 H Sodium 140 Potassium 3.6 Chloride 107 Carbon Dioxide 26 BUN 13 Creatinine 0.65 AST 21 ALT 15 Alkaline Phosphatase 78 C-Reactive Protein < 0.04 Immunology labs 10/24/23 16:39 Rheumatoid Factor < 13.0 Cycl Citrul Peptide IgG 174 H SVETLANA Screen NEGATIVE Infectious serologies 10/24/23 12/07/24 16:39 14:38 Hepatitis A IgM Ab Nonreactive Hep Bs Antigen Negative Hep Bs Antibody REACTIVE Hep B Core Total Ab Nonreactive Hepatitis C Ab (EIA) Nonreactive TB Test (T-Spot) Com Negative Pending Assessment & Plan Assessment & Plan (1) Seropositive rheumatoid arthritis: Comment: -ve RF ++CCP dx 10/2023 MTX 10/2023 - DC 07/2024 ineffective and caused transaminitis Humira started 04/2024 effective Code(s): M05.9 - Rheumatoid arthritis with rheumatoid factor, unspecified Category: Medical Plan: #Seropositive RA Patient is a 64 y.o. female with seropositive rheumatoid arthritis here today for follow up. RA in remission on Humira monotherapy Plan - Humira 40mg SC every other week - RTC 5 months - LAbs before visit: CBC, CMP, CRP, ESR (2) Generalized osteoarthritis: Code(s): M15.9 - Polyosteoarthritis, unspecified Plan: #Polyarticular OA Patient with joint complaints consistent with degenerative OA. Recommended continue topical diclofenac use 4 times a day. Also recommended paraffin wax baths Plan - Topical diclofenac 1% qid - Paraffin wax baths for hands twice a day (3) Fibromyalgia: Code(s): M79.7 - Fibromyalgia Category: Medical Plan: #Fibromyalgia Patient with trapezius fibromyalgia tender points. Recommending stretches and light exercises (4) Age-related osteoporosis without fracture: Code(s): M81.8 - Other osteoporosis without current pathological fracture Category: Medical Plan: #Osteoporosis Patient with osteoporosis currently being managed by Endocrinology at [facility] with Prolia injections. (5) Encounter for monitoring of adalimumab therapy: Code(s): Z51.81 - Encounter for therapeutic drug level monitoring; Z79.620 - MCC (current) use of immunosuppressive biologic Plan: #Long-term Use of TNF Inhibitors: Humira Discussed with the patient the benefits and risks of TNF inhibitors for the management of the rheumatic condition Benefits include reduce pain, maintenance of remission and reduction of flares as well as ?progression of the disease Risks include injection sites/infusion reactions, serious infections (such as bacterial infections, opportunistic infections), malignancy, delaminating syndromes, autoimmune phenomena, CHF exacerbations, palmar plantar psoriasis and cytopenias Recommended rotating injection sites, and holding medication during and for up to 1 week after resolution of a febrile illness or open skin wound Plan I spent 30 minutes reviewing the record and labs, taking a history, examining the patient, discussing the treatment plan, ordering diagnostic work up and documenting in the medical record Orders: Orders Erythrocyte Sedimentation Rate 5 Months M05.9 - Rheumatoid arthritis with rheumatoid factor, unspecified Complete Blood Count Auto Diff 5 Months M05.9 - Rheumatoid arthritis with rheumatoid factor, unspecified Comprehensive Met. Panel 5 Months M05.9 - Rheumatoid arthritis with rheumatoid factor, unspecified C Reactive Protein 5 Months M05.9 - Rheumatoid arthritis with rheumatoid factor, unspecified Medications: Changed From diclofenac sodium 1% (Arthritis Pain (diclofenac)) apply to single elbow, wrist or hand; for hand includes palm/fingers/back of hand 2 grams topical QID M15.9 - Polyosteoarthritis, unspecified To diclofenac sodium 1% (Arthritis Pain (diclofenac)) apply to bilateral hands 4 times a day 2 grams topical QID 100 grams 4RF M15.9 - Polyosteoarthritis, unspecified Refilled adalimumab (Humira(CF) Pen) 40 mg (0.4 mL) subcut Q2W 4 ea 5RF M05.9 - Rheumatoid arthritis with rheumatoid factor, unspecified Coding Level of Care Code Est Pt Level 4 (37004) Complex EM visit Add On G2211 Diagnoses Seropositive rheumatoid arthritis M05.9 Generalized osteoarthritis M15.9 Fibromyalgia M79.7 Age-related osteoporosis without fracture M81.8 Encounter for monitoring of adalimumab therapy Z51.81; Z79.620
--- OUTSIDE RECORDS SUMMARY | 2024-12-08 14:58 | XMS_ITS | Clinical Summary ---
Author Organization [facility] [address] [place] [address] [place] [phone] Phone Care Team Providers Care Director Of Retail Merchandising Name Role Phone Jose Dean MD Primary Care Provider [phone] Allergies Active Allergy Reactions Criticality Noted Date [...] WHI. I discussed risks including cardiovascular disease- AK, DVT, stroke. I discussed small increased risk [...] options. Obstructive sleep apnea 08/03/2022 Overview (05/19/2024): [facility] Home Sleep Apnea Test: Date 02/08/2022; BMI [...] 01/22/2022 Hematuria 08/21/2021 Overview (05/19/2024): Follows with [facility] urology Nephrolithiasis 08/21/2021 Overview (05/19/2024): Follows with [facility] urolog Age-related osteoporosis wit hout current [...] Encounters Date Type Department Care Team Description [facility] [address] [phone] Keagan Brandt MA Fitting for DME (CPAP DME [employer]) 11/25/2024 2:00 PM EDT Office Visit [address] [phone] Laura Frye NP Obstructive sleep apnea (Primary Dx); Nocturnal hypoxia; Oral dryness 2024 12:42 PM EDT - 2024 11:59 PM EDT Hospital Encounter Radiology Department - [address] [phone] Encounter for screening mammogram for breast cancer Discharge Disposition: Home or Self Care 10/09/2024 12:48 PM EDT - 10/09/2024 11:59 PM EDT Hospital Encounter [facility] [address] [facility] [address] [place] [phone] Jazmyne Martinez MD Age-related osteoporosis without current pathological fracture (Primary Dx) Discharge Disposition: Home or Self Care 09/23/[address] [phone] Goldie Terrazas MA Appointment ([facility]) 09/18/2024 11:15 AM EST Office Visit Endocrinology [address] [phone] Jazmyne Martinez MD Age-related osteoporosis without current pathological fracture (Primary Dx) 09/18/2024 Telephone Adult Medicine [facility] - [address] [phone] Jose Dean MD FYI 09/15/2024 2:00 PM EST Office Visit Adult [address] [phone] Jose Dean MD Pure hypercholesterolemia (Primary Dx); Encounter for long-term (current) use of medications; Osteoporosis, unspecified osteoporosis type, unspecified pathological fracture presence; Rheumatoid arthritis, involving unspecified site, unspecified whether rheumatoid factor present ([facility] V24, [facility] V28) from Last 3 Months Immunizations Name [...] BREAST REDUCTION PROCEDURE: [place] BREAST REDUCTION; COMMENT: 2016 Medical History Medical History Date Comments GERD [...] 2:20 PM EDT Office Visit Pulmonolgy - [place] [address] [facility] [address] [place] [phone] Laura Frye NP [address] [facility] [address] [place] [address] 03/25/2025 1:00 PM EDT Office Visit Adult Medicine [address] [phone] Jose Dean MD [address] [place] [address] 09/20/2025 1:15 PM EST Office Visit Endocrinology [address] [phone] Jazmyne Martinez MD [address] [place] [address] Health Maintenance Due Date Last Done Comments [...] is recommended in 1 year. MAMMO LOCATION: [facility], [address] [place] [address], [address], . -------- FINAL REPORT -------- Dictated By: Nataliia Julien Dictated Date: 10/12/2024 18:26 ET Assigned Physician: Nataliia Julien Reviewed and Electronically Signed By: Nataliia Julien Signed Date: 10/12/2024 18:28 ET Workstation ID: [id number] Transcribed By: Self Edit Transcribed Date: 10/12/2024 [...] is recommended in 1 year. MAMMO LOCATION: [facility], [address] [place] [address], [facility], . -------- FINAL REPORT -------- Dictated By: Nataliia Julien Dictated Date: 10/12/2024 18:26 ET Assigned Physician: Nataliia Julien Reviewed and Electronically Signed By: Nataliia Julien Signed Date: 10/12/2024 18:28 ET Workstation ID: [id number] Transcribed By: Self Edit Transcribed Date: 10/12/2024 18:26 ET Jose Dean MD IM BI PROCEDURES Final Result * (ABNORMAL) Lipid panel with reflex to direct LDL (09/15/2024 2:00 PM EST) Cholesterol 280(H) 0 - 200 mg/dL LAB CHEMISTRY METHOD 09/15/2024 5:19 PM EST [facility] Triglycerides 133 0 - 150 mg/dL LAB CHEMISTRY METHOD 09/15/2024 5:19 PM EST [facility] HDL 74 >=40 mg/dL LAB CHEMISTRY METHOD 09/15/2024 5:19 PM EST [facility] LDL Calculated 179(H) 0 - 100 mg/dL LAB CHEMISTRY METHOD 09/15/2024 5:19 PM EST [facility] VLDL Cholesterol Alessio 26.6 mg/dL LAB CHEMISTRY METHOD 09/15/2024 5:19 PM [facility] Non HDL Chol. (LDL+VLDL) 206(H) <145 mg/dL LAB CHEMISTRY METHOD 09/15/2024 5:19 PM [facility] Chol/HDL Ratio 3.8 0.0 - 4.4 LAB CHEMISTRY METHOD 09/15/2024 5:19 PM [facility] Blood Venous blood specimen / Unknown Venipuncture / Unknown 09/15/2024 2:00 PM EST 09/15/2024 2:00 PM EST us Jose Dean MD LAB BLOOD ORDERABLES Final Resu lt [facility] [address] [place] [address], * (ABNORMAL) Comprehensive metabolic panel (09/15/2024 2:00 PM EST) Sodium 137 133 - 145 mmol/L LAB CHEMISTRY METHOD 09/15/2024 5:20 PM [facility] Potassium 3.9 3.5 - 5.5 mmol/L LAB CHEMISTRY METHOD 09/15/2024 5:20 PM [facility] Chloride 105 96 - 110 mmol/L LAB CHEMISTRY METHOD 09/15/2024 5:20 PM [facility] CO2 30 21 - 32 mmol/L LAB CHEMISTRY METHOD 09/15/2024 5:20 PM [facility] Anion Gap 2(L) 3 - 11 LAB CHEMISTRY METHOD 09/15/2024 5:20 PM [facility] Glucose 88 70 - 100 mg/dL LAB CHEMISTRY METHOD 09/15/2024 5:20 PM [facility] BUN 15 5 - 25 mg/dL LAB CHEMISTRY METHOD 09/15/2024 5:20 PM [facility] Creatinine 0.72 0.50 - 1.10 mg/dL LAB CHEMISTRY METHOD 09/15/2024 5:20 PM [facility] eGFR 94 >=60 mL/min/1. 73m2 LAB CHEMISTRY METHOD 09/15/2024 5:20 PM [facility] Comment:Calculation based on the??Chronic Kidney Disease Epidemiology Collaboration (CKD-EPI) equation refit??without adjustment for race. BUN/Creatinine Ratio 20.8 LAB CHEMISTRY METHOD 09/15/2024 5:20 PM [facility] Calcium 9.7 8.5 - 10.5 mg/dL LAB CHEMISTRY METHOD 09/15/2024 5:20 PM [facility] AST (SGOT) 12 10 - 42 unit/L LAB CHEMISTRY METHOD 09/15/2024 5:20 PM [facility] ALT (SGPT) 20 10 - 60 unit/L LAB CHEMISTRY METHOD 09/15/2024 5:20 PM [facility] Alkaline Phosphatase 106 42 - 121 unit/L LAB CHEMISTRY METHOD 09/15/2024 5:20 PM [facility] Total Protein 7.8 6.0 - 8.0 g/dL LAB CHEMISTRY METHOD 09/15/2024 5:20 PM [facility] Albumin 4.0 3.2 - 5.0 g/dL LAB CHEMISTRY METHOD 09/15/2024 5:20 PM [facility] Total Bilirubin 0.5 0.0 - 1.4 mg/dL LAB CHEMISTRY METHOD 09/15/2024 5:20 PM [facility] Blood Venous blood specimen / Unknown Venipuncture / Unknown 09/15/2024 2:00 PM EST 09/15/2024 2:00 PM EST us Jose Dean MD LAB BLOOD ORDERABLES Final Resu lt [facility] [address] [place] [address], * DXA BONE DENSITY STUDY 1+ SITS [...] should be classified as having osteoporosis. The [facility] Department of Internal Medicine recommends using National [...] Welch should beclassified as having osteoporosis. The [facility] Department of Internal Medicine recommendsusing National Osteoporosis [...] or over-estimation of fracture risk by FRAX. us Jazmyne Martinez MD [facility] DXA PROCEDURES Final Result * Hm Colonoscopy (12/06/2021) Colonoscopy no interpretation , abstracted Anatomical Region Laterality Modality Other Historical Provider HEALTH MAINTENANCE Final Result * Hepatitis C Screening (12/23/2018) Hepatitis C Screening abstracted Historical Provider HEALTH MAINTENANCE Final Result from Last 3 Months or Most Recently Relevant to Health Maintenance Insurance [facility] MEDICARE Member Subscriber Plan / Payer (Ef fective 2018-Present) Name:Welchjeniffer Kilpatrick Myah Relation to Subscriber:Self Name:Myah Moise Payer ID:[id number] Group ID:[id number] Type:Not on file Address: [place] [address] [address] [place] [phone] Care Teams Director Of Retail Merchandising Relationship Specialty Start Date End Date Jose Dean MD [address] [place] [phone] PCP - General Internal Medicine 09/18/24
--- OUTSIDE RECORDS SUMMARY | 2024-12-08 14:58 | XMS_ITS | Data Portability ---
Author Organization [employer] [facility], [place] [facility] [employer] Address [address] [place] [phone] Care Team Providers Care Trust Administrator Name Role Phone KRISSY SALMERON Primary Care Provider [phone] Assessment Encounter Date Assessment Date Assessment LastModified [...] Not available Not available Not available 05/26/2024 [phone] SNOMED Not Available [employer] - production [...] Details Last Updated DateTime 3 68 /min 78575.6 g 98 % 98 % 167.64 cm [...] SNOMED-CT Code Diagnosis ICD10 Code Diagnosis Note [id number] Cate Barry MD Main - [facility] [address] [place] [phone] 03/21/2023 15:56:58 03/22/2023 00:25:09 Chest wall pain [id number] R07.89 Health Concerns Section Related Observation LastModified by Organization Detai ls LastModified Time None Recorded Concern Status LastModified by Organization Details LastModified Time None Recorded Advance Directives Directive None Recorded Payers Insurance Date Sequence Insurance Name Policy Number Policy Raza Covered Member ID Raza Member ID Guarantor Name 02/20/2024 1 [facility] - DOS ON OR AFTER 2022 - DUAL ELIGIBLE - HALFWAY OPTIONS AND ONE CARE (MEDICARE REPLACEMENT/ADV ANTAGE - HMO) Myah Welch [id number] Myah Welch Notes Date Note Type Note [...] but would like to proceed with an [facility] visit to be evaluated. ................. ................. ................. ................. ................. ................. ................. ................. ..... Rehab Liaison Note From Khoi Watson: Pt caox3 seated on couch. 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 Rehab Liaison Allergies: Penicillin ................. ................. ................. ................. ................. ................. ................. ................. ..... Disposition: Fulfilled Cate Barry MD [address] [facility],[address], [place], [phone], [place] - FRANCINE BRERIOS 03/21/2023 18:46:01 OBGyn Episode No OBEpisode recorded.
== END 2024-12-08 15:07 | disposition home or self-care (01) ==
LOC: HO.RHE 13:49
PROVIDERS: PCP Internal Medicine; Visit Provider Student in an Organized Health Care Education/Training Program
DX: M05.79 Rheumatoid arthritis with rheumatoid factor of multiple sites without organ or systems involvement (principal); M15.9 Polyosteoarthritis, unspecified; M79.7 Fibromyalgia; M81.8 Other osteoporosis without current pathological fracture; Z51.81 Encounter for therapeutic drug level monitoring; Z79.620 Long term (current) use of immunosuppressive biologic
CPT/HCPCS: 99214; G2211

== ENCOUNTER → 2024-12-08 13:49 | Outpatient (BNVA) | payer OTHER, SELFPAY | PROVIDERS: PCP Internal Medicine; Visit Provider Student in an Organized Health Care Education/Training Program | DX: M05.9 Rheumatoid arthritis with rheumatoid factor, unspecified (principal); M15.9 Polyosteoarthritis, unspecified; M79.7 Fibromyalgia; M81.8 Other osteoporosis without current pathological fracture; Z51.81 Encounter for therapeutic drug level monitoring; Z79.620 Long term (current) use of immunosuppressive biologic | CPT/HCPCS: 99212 ==

== ENCOUNTER 2025-04-27 10:09 | Outpatient (REF) | payer OTHER, SELFPAY ==
--- OUTSIDE RECORDS SUMMARY | 2025-04-27 11:15 | XMS_ITS | Clinical Summary ---
Author Organization [facility] [address] [place] [address] Address [address] [place] [address] Phone Care Team Providers Care Plate Roller Name Role Phone Jose Dean MD Primary Care Provider [phone] Allergies Active Allergy Reactions Criticality Noted Date [...] (one) time each day. 09/02/19 24 Active cetirizine (ZyrTEC) 10 mg tablet [...] 12 each 1 09/15/19 25 026 Active atorvastatin (LIPITOR) 40 mg tablet Take 1 tablet (40 mg total) by mouth 1 (one) time each day. 90 tablet 1 09/16/19 25 Active zoledronic acid (RECLAST) 5 mg/100 mL piggybackIndica tions:Age-relat ed osteoporosis without current pathological fracture Infuse 100 mL (5 mg total) into a venous catheter 1 (one) time for 1 dose. 100 mL 09/18/19 25 Active Additional Information Patient taking differently:5 mg intravenous Once,3 x yearly, Reported on 03/25/2025 montelukast (SINGULAIR) 10 mg tablet TAKE 1 [...] Active Additional Information Patient not taking.Reported on 03/25/2025 ibuprofen (ADVIL,MOTRIN) 600 mg tablet TAKE 1 TABLET(600 MG) BY MOUTH EVERY 8 HOURS NEEDED FOR MILD PAIN OR MODERATE PAIN 90 tablet 1 01/05/20 25 Active albuterol HFA (PROAIR HFA ; PROVENTIL HFA ; VENTOLIN HFA) 90 mcg/actuation inhaler Inhale 2 puffs by mouth every 6 (six) hours if needed for wheezing. Active Wixela Inhub 100-50 mcg/dose diskus inhaler INHALE 1 PUFF INTO THE LUNGS TWICE DAILY 60 each 1 03/30/20 25 Active Wixela Inhub 100-50 mcg/dose diskus inhaler INHALE 1 PUFF INTO THE LUNGS TWICE DAILY 60 each 1 02/02/20 25 025 Discontinued Active Problems Problem Noted [...] WHI. I discussed risks including cardiovascular disease- VA, DVT, stroke. I discussed small increased risk [...] options. Obstructive sleep apnea 08/03/2022 Overview (05/19/2024): [facility] Home Sleep Apnea Test: Date 02/08/2022; [...] 01/22/2022 Hematuria 08/21/2021 Overview (05/19/2024): Follows with [facility] urology Nephrolithiasis 08/21/2021 Overview (05/19/2024): Follows with [facility] urolog Age-related osteoporosis wit hout [...] Encounters Date Type Department Care Team Description 03/25/2025 1:35 PM EDT - 03/25/2025 11:59 PM EDT Hospital Encounter [address] [phone] Acute pain of left shoulder Discharge Disposition: Home or Self Care 03/25/2025 1:00 PM EDT Office Visit Adult Medicine [address] [phone] Jose eDan MD Acute pain of left shoulder (Primary Dx); Pure hypercholesterolemia ; Encounter for long-term (current) use of medications; Myalgia; Fibromyalgia; Rheumatoid arthritis, involving unspecified site, unspecified whether rheumatoid factor present ([facility] V24, [facility] V28) 03/12/2025 8:30 AM EDT Office Visit Pulmonology - [address] [place] [address] Laura Frye NP Obstructive sleep apnea (Primary Dx); Nocturnal hypoxia; Oral dryness; Mild persistent asthma without complication; Overweight (BMI 25.0-29.9) from Last 3 Months Immunizations Immunization Administration Dates Next Due H1N1 Inj Preservative [...] Date Site/Laterality Comments OTHER SURGICAL HISTORY PROCEDURE: RI TOTAL ABDOMINAL HYSTERECT W/WO RMVL TUBE OVARY ESOPHAGOGASTRODUODENOSCOPY 10/03/2009 PROCEDURE: RI EGD TRANSORAL BIOPSY SINGLE/MULTIPLE; COMMENT: Esophagus normal-biopsy, gastritis-biopsy, normal SB. gastric bx: chronic gastritis (Hpylori-). Esophagus bx: Normal COLONOSCOPY 10/16/10 PROCEDURE: HISTORICAL COLONOSCOPY; COMMENT: adenomas; repeat in three years BREAST REDUCTION PROCEDURE: RI BREAST REDUCTION; COMMENT: 2015 Medical History Medical [...] Sign Reading Time Taken Comments Blood Pressure 116/72 03/25/2025 1:05 PM EDT Pulse 76 03/25/2025 1:05 PM EDT Temperature 36.6 C (97.8 F) 03/25/2025 1:05 PM EDT Respiratory Rate 14 03/25/2025 1:05 PM EDT Oxygen Saturation 99% 03/25/2025 1:05 PM EDT Inhaled Oxygen Concentration - - Weight 78.9 kg (174 lb) 03/25/2025 1:05 PM EDT Height 175.3 cm (5' 9 ) 03/25/2025 1:05 PM EDT Body Mass Index 25.7 03/25/2025 1:05 PM EDT Plan of Treatment Upcoming Encounters Date Type Department Care Team (Late st Contact Info) Description 09/10/2025 11:00 AM EST Office Visit Pulmonology - [place] [address] [facility] [address] [place] [phone] Laura Frye, PEGGY [address] [place] [address] 09/20/2025 1:15 PM EST Office Visit Endocrinology - [address] [phone] Jazmyne Martinez MD [address] [place] [address] Health Maintenance Due Date Last Done Comments Pneumococcal Vaccine: 50+ Years (1 of 2 - PCV) 10/11/1979 HIV Screening 07/07/2022 Medicare Annual Wellness Visit 07/07/2022 Social Influencers of Health Screening 07/07/2022 Depression Screening 07/29/2024 COVID-19 Vaccine ( season) 2025 05/14/2023, 06/24/2022, 07/17/2021, Additional history exists Influenza Vaccine (#1) 2025 4, 05/14/2023, 06/24/2022, Additional history exists Breast Cancer Screening 2026 10/11/19 25, 03/05/2023, 02/09/2023, Additional history exists Cholesterol Screening (Lipid Panel) 03/25/2030 03/25/2025, 09/15/2024, 04/10/2024, Additional history exists DTaP,Tdap,and Td Vaccines (4 - Td or Tdap) 04/20/2031 04/20/2021, 02/15/2011, 04/07/2009 Colorectal Cancer Screening: Colonoscopy 12/07/2031 12/06/2021 Osteoporosis Screening (Bone Density Screening) 10/22/2033 10/23/2023, 10/22/2018 Hepatitis C Screening Completed 12/23/2018 Zoster Vaccines Completed 10/09/2021, 08/06/2021 RSV Immunization Adult Patients Completed 09/14/2023 HIB Vaccines Aged Out No longer eligi [...] Procedure Name Priority Date/Time Associated Diagnosis Comments XR SHOULDER 2+ VIEWS LEFT Routine 03/25/2025 1:43 PM EDT Acute pain of left shoulder COMPREHENSIVE METABOLIC PANEL Routine 03/25/2025 1:32 PM EDT Encounter for long-term (current) use of medications LIPID PANEL WITH REFLEX TO DIRECT LDL Routine 03/25/2025 1:32 PM EDT Pure hypercholesterolemia CREATINE KINASE Routine 03/25/2025 1:32 PM EDT Myalgia MG MAMMO DIGITAL SCREENING W DAJUAN BILAT Routine 2024 12:55 PM EDT Encounter for screening mammogram for breast cancer DXA BONE DENSITY STUDY 1+ SITS AXIAL SKEL Routine 10/23/2023 1:26 PM EDT Age-related osteoporosis without current pathological fracture HM COLONOSCOPY Routine 12/06/2021 HEPATITIS C SCREENING Routine 12/23/2018 from Last 3 Months or Most Recently Relevant to Health Maintenance Results * XR Shoulder 2+ Views Left (03/25/2025 1:43 PM EDT) Anatomical Region Laterality Modality Upper Extremities, Shoulder Left Radi ographic Imaging 03/26/2025 1:41 PM EDT Impressions 03/26/2025 1:43 PM EDT Findings of calcific tendinopathy/bursitis. Very mild degenerative changes at the acromioclavicular joint. POS - [id number] -------- FINAL REPORT -------- Dictated By: Nataliia Julien Dictated Date: 03/26/2025 13:41 ET Assigned Physician: Nataliia Julien Reviewed and Electronically Signed By: Nataliia Julien Signed Date: 03/26/2025 13:43 ET Workstation ID: [id number] Transcribed By: Self Edit Transcribed Date: 03/26/2025 13:41 ET Narrative 03/26/2025 1:43 PM EDT EXAM: Left shoulder x-ray HISTORY: Acute left shoulder pain. COMPARISON: None FINDINGS: 4 views performed. Very mild degenerative changes at the acromioclavicular joint. No appreciable degenerative changes at the glenohumeral joint. No acute fracture or dislocation detected. No destructive bone lesion. Faint calcifications superior and lateral to the humeral head from calcific tendinopathy/bursitis. Procedure Note Nataliia Julien MD - 03/26/2025 EXAM: Left shoulder x-ray HISTORY: Acute left shoulder pain. COMPARISON: None FINDINGS: 4 views performed. Very mild degenerative changes at the acromioclavicular joint. Noappreciable degenerative changes at the glenohumeral joint. No acutefracture or dislocation detected. No destructive bone lesion. Faintcalcifications superior and lateral to the humeral head from calcifictendinopathy/bursitis. IMPRESSION: Findings of calcific tendinopathy/bursitis. Very mild degenerative changesat the acromioclavicular joint. POS - [id number] -------- FINAL REPORT -------- Dictated By: Nataliia Julien Dictated Date: 03/26/2025 13:41 ET Assigned Physician: Nataliia Julien Reviewed and Electronically Signed By: Nataliia Julien Signed Date: 03/26/2025 13:43 ET Workstation ID: [id number] Transcribed By: Self Edit Transcribed Date: 03/26/2025 13:41 ET us Jose Dean MD IMG XR PROCEDURES Final Result * Lipid panel with reflex to direct LDL (03/25/2025 1:32 PM EDT) Cholesterol 174 0 - 200 mg/dL LAB CHEMISTRY METHOD 03/25/2025 5:[address] [facility] Triglycerides 72 0 - 150 mg/dL LAB CHEMISTRY METHOD 03/25/2025 5:[address] [facility] HDL 82 >=40 mg/dL LAB CHEMISTRY METHOD 03/25/2025 5:[address] [facility] LDL Calculated 78 0 - 100 mg/dL LAB CHEMISTRY METHOD 03/25/2025 5:[address] [facility] Comment:Estimated LDL Calcul ated using equation: Total cholesterol - HDL cholesterol - (Triglycerides/5) VLDL Cholesterol Alessio 14.4 mg/dL LAB CHEMISTRY METHOD 03/25/2025 5:[address] [facility] Non HDL Chol. (LDL+VLDL) 92 <145 mg/dL LAB CHEMISTRY METHOD 03/25/2025 5:[address] [facility] Chol/HDL Ratio 2.1 0.0 - 4.4 LAB CHEMISTRY METHOD 03/25/2025 5:[address] [facility] Blood Venous blood specimen / Unknown Venipuncture / Unknown 03/25/2025 1:32 PM EDT 03/25/2025 1:32 PM EDT us Jose Dean MD LAB BLOOD ORDERABLES Final Resu lt Performing Organization Address City/[facility]/ZIP Co de Phone Number [facility] [address] [place] [address], [place] [phone] * Creatine kinase (03/25/2025 1:32 PM EDT) [facility] Total CK 253 22 - 269 unit/L LAB CHEMISTRY METHOD 03/25/2025 5:[address] [facility] Blood Venous blood specimen / Unknown Venipuncture / Unknown 03/25/2025 1:32 PM EDT 03/25/2025 1:32 PM EDT us Jose Dean MD LAB BLOOD ORDERABLES Final Resu lt [facility] [address] [place] [address], [place] [phone] * Comprehensive metabolic panel (03/25/2025 1:32 PM EDT) Pathologist [facility] Sodium 138 133 - 145 mmol/L LAB CHEMISTRY METHOD 03/25/2025 5:11 PM [facility] Potassium 4.4 3.5 - 5.5 mmol/L LAB CHEMISTRY METHOD 03/25/2025 5:11 PM [facility] Chloride 105 96 - 110 mmol/L LAB CHEMISTRY METHOD 03/25/2025 5:11 PM [facility] CO2 28 21 - 32 mmol/L LAB CHEMISTRY METHOD 03/25/2025 5:11 PM [facility] Anion Gap 5 3 - 11 LAB CHEMISTRY METHOD 03/25/2025 5:11 PM [facility] Glucose 82 70 - 100 mg/dL LAB CHEMISTRY METHOD 03/25/2025 5:11 PM [facility] BUN 9 5 - 25 mg/dL LAB CHEMISTRY METHOD 03/25/2025 5:11 PM [facility] Creatinine 0.61 0.50 - 1.10 mg/dL LAB CHEMISTRY METHOD 03/25/2025 5:11 PM [facility] eGFR 100 >=60 mL/min/1. 73m2 LAB CHEMISTRY METHOD 03/25/2025 5:11 PM [facility] Comment:Calculation based on the Chronic Kidney Disease Epidemiology Collaboration (CKD-EPI) equation refit without adjustment for race. BUN/Creatinine Ratio 14.8 LAB CHEMISTRY METHOD 03/25/2025 5:11 PM [facility] Calcium 10.0 8.5 - 10.5 mg/dL LAB CHEMISTRY METHOD 03/25/2025 5:11 PM [facility] AST (SGOT) 19 10 - 42 unit/L LAB CHEMISTRY METHOD 03/25/2025 5:11 PM [facility] ALT (SGPT) 28 10 - 60 unit/L LAB CHEMISTRY METHOD 03/25/2025 5:11 PM [facility] Alkaline Phosphatase 100 42 - 121 unit/L LAB CHEMISTRY METHOD 03/25/2025 5:[address] [facility] Total Protein 7.8 6.0 - 8.0 g/dL LAB CHEMISTRY METHOD 03/25/2025 5:[address] [facility] Albumin 4.4 3.2 - 5.0 g/dL LAB CHEMISTRY METHOD 03/25/2025 5:[address] [facility] Total Bilirubin 0.5 0.0 - 1.4 mg/dL LAB CHEMISTRY METHOD 03/25/2025 5:[address] [facility] Blood Venous blood specimen / Unknown Venipuncture / Unknown 03/25/2025 1:32 PM EDT 03/25/2025 1:32 PM EDT us Jose Dean MD LAB BLOOD ORDERABLES Final Resu lt [facility] [address] [place] [address], * MG Mammo Digital Screening w Dajuan bilat (2024 12:55 PM EDT) Anatomical Region Laterality Modality Breast Bilateral Mammography 10/12/2024 6:26 PM EDT Impressions 10/12/2024 6:28 PM EDT No mammographic evidence of malignancy. BREAST DENSITY: B - There are scattered areas of fibroglandular density. BI-RADS CATEGORY: 2 - BENIGN RECOMMENDATION: Screening bilateral mammogram is recommended in 1 year. MAMMO LOCATION: [facility], [address] [place] [address], [id number], . -------- FINAL REPORT -------- Dictated By: Nataliia Julien Dictated Date: 10/12/2024 18:26 ET Assigned Physician: Nataliia Julien Reviewed and Electronically Signed By: Nataliia Julien Signed Date: 10/12/2024 18:28 ET Workstation ID: [id number] Transcribed By: Self Edit Transcribed Date: 10/12/2024 18:26 ET Narrative 10/12/2024 6:28 PM EDT EXAM: Screening Mammogram CLINICAL: 64 years old, Female, routine annual exam. History of bilateral reduction mammoplasty. COMPARISON: 02/09/2023 and as far back as 01/21/2021 TECHNIQUE: Bilateral MLO and CC views were obtained digitally with 3-D mammogram (digital breast tomosynthesis). Computer-aided detection was utilized in evaluation of this exam (CAD). FINDINGS: Stable bilateral postsurgical changes of reduction mammoplasty. No new suspicious mass, architectural distortion, or suspicious [...] is recommended in 1 year. MAMMO LOCATION: [facility], [address] [place] [address], [facility], . -------- FINAL REPORT -------- Dictated By: Nataliia Julien Dictated Date: 10/12/2024 18:26 ET Assigned Physician: Nataliia Julien Reviewed and Electronically Signed By: Nataliia Julien Signed Date: 10/12/2024 18:28 ET Workstation ID: [id number] Transcribed By: Self Edit Transcribed Date: 10/12/2024 18:26 ET us Jose Dean MD IMG BI PROCEDURES Final Result * DXA BONE DENSITY STUDY 1+ SITS AXIAL SKEL (10/23/2023 1:26 PM EDT) Anatomical Region Laterality Modality Bone Densitometr y 09/17/2023 1:46 PM EST Narrative 10/24/2023 9:54 AM EDT BONE DENSITY Lumbar Spine T-score is -2.1 [...] compared to most recent bone density examination Confidence level is +/-95%. Impression: Based on the World Health Organization criteria, Myah Mike should be classified as having osteoporosis. [facility] Department of Internal Medicine recommends using National [...] on the World Health Organization criteria, Myah Mike should beclassified as having osteoporosis. [facility] Department of Internal Medicine recommendsusing National Osteoporosis [...] fracture risk by FRAX. Jazmyne Martinez MD [facility] DXA PROCEDURES Final Result * Colonoscopy (12/06/2021) [facility] Colonoscopy no interpretation , abstracted Anatomical Region Laterality Modality Other Historical Provider HEALTH MAINTENANCE Final Result * Hepatitis C Screening (12/23/2018) [facility] Hepatitis C Screening abstracted Historical Provider HEALTH MAINTENANCE Final Result from Last 3 Months or Most Recently Relevant to Health Maintenance Insurance [facility] Member Subscriber Plan / Payer (Ef fective 2018-Present) Name:MYAH MIKE Relation to Subscriber:Self Name:Myah Moise Payer ID:[id number] Group ID:[id number] Type:Not on file Address: [place] [address] [address] [place] [phone] Care Teams Plate Roller Relationship Specialty Start Date End Date Jose Dean MD [address] [place] [phone] PCP - General Internal Medicine 09/18/24
[2025-04-27 13:45] LABS: MANUAL DIFF FLAG NO
[2025-04-27 13:46] LABS: Hematocrit 40.1 % (37.0-47.0); Hemoglobin 13.2 g/dl (12.0-16.0); Imm Gran Abs Auto 0.04 X10*3/uL (0.00-0.03); Imm Gran Pct Auto 0.6 % (0.0-0.4); Lymphocytes Absolute Auto 2.7 X10*3/uL (1.2-4.9); Mean Corpuscular HGB Conc 32.9 g/dl (31.0-35.0); Mean Corpuscular Hemoglobin 30.3 pg (27.0-33.0); Mean Corpuscular Volume 92.2 fL (80.0-98.0); NRBC Abs Auto 0.000 X10*3/uL (0.0-0.012); NRBC Pct Auto 0.0 /100WBC (0.0-0.2); Platelet Count 186 X10*3/uL (160-400); Red Blood Count 4.35 X10*6/uL (4.20-5.50); White Blood Count 6.3 X10*3/uL (4.8-10.8)
[2025-04-27 15:38] LABS: Alanine Aminotransferase 15 U/L (0-31); Albumin Level 4.7 g/dL (3.5-5.0); Alkaline Phosphatase 96 U/L (39-117); Anion Gap 14 (12-20); Aspartate Amino Transferase 23 U/L (5-31); Blood Urea Nitrogen 15 mg/dL (9-16); Calcium 10.1 mg/dL (8.4-10.2); Carbon Dioxide 25 mmol/L (22-29); Chloride 106 mmol/L (96-108); Estimated Glomerular Filt Rate > 60; Potassium 4.7 mmol/L (3.3-5.1); Sodium 140 mmol/L (135-145); Total Protein 8.1 g/dL (6.5-8.0)
== END 2025-04-27 10:10 | disposition home or self-care (01) ==
LOC: HO.HKASLDS 10:09
PROVIDERS: PCP Internal Medicine; Visit Provider Student in an Organized Health Care Education/Training Program
DX: M05.9 Rheumatoid arthritis with rheumatoid factor, unspecified (principal)
CPT/HCPCS: 36415; 80053; 85025; 85652; 86140

== ENCOUNTER 2025-05-12 14:17 | Outpatient (AMB) | payer OTHER, SELFPAY ==
[2025-05-12 14:28] VITALS: BP 122/80; PULSE 80; O2SAT 96; BMI 24.8
--- NOTE | 2025-05-12 14:28 | A.OFFVIS_ITS ---
Vital Signs 05/12/25 14:28 Height 5 ft 9 in Weight 167 lb 12.348 oz BMI 24.8 BP 122/80 Blood Pressure Location Lt brachial Position Sitting Pulse 80 Pulse Source Pulse Oximeter Pulse Oximetry (%) 96 Oxygen Delivery Method Room Air Intake Visit Reasons: RA Intake Note: Patient presents for RA follow up today and lab review. Accompanied by: Self / Same As Patient Allergies gabapentin Adverse Reaction (Intermediate, Verified 05/12/25 14:28) Rash Penicillins Adverse Reaction (Intermediate, Verified 05/12/25 14:28) Rash HPI Comments Details: Patient is a 64 y.o. female with hyperlipidemia, allergies, hypertension, osteoporosis, fibromyalgia and seropositive rheumatoid arthritis here today for follow up Interval History: Patient last seen 12/08/24 with me - On Humira 40mg SC every 2 weeks - Patient has not noticed any worsening of her joints since stopping the methotrexate - Complaining of neck muscle pain and stiffness, hand pain at the end of the day - No prolonged AM stiffness Today - On Humira 40mg SC every 2 weeks - Sometimes gets swelling at the injection site - Has not been alternating sites - Overall doing well - Joint pain under control Rheumatologic History: -ve RF ++CCP dx 10/2023 MTX 10/2023 - DC 07/2024 ineffective and caused transaminitis Humira started 04/2024 effective Initial history with Dr. Carrillo: 61 y/o F with FM. used to see Dr. Frias before. She was allergic to Gabapentin, Never tried Lyrica. She continues to have the same pain mostly in her neck, upper back and shoulders. No joint swelling. Continues to have fatigue. Current Rheumatology Medication(s): Humira 40mg SC every 2 weeks Topical diclofenac 1% PFSH Medical History Migraine GERD (gastroesophageal reflux disease) Depression Hyperlipidemia Degenerative disc disease, lumbar Age-related osteoporosis without fracture Fibromyalgia Nephrolithiasis Surgical History History of mammogram H/O total hysterectomy Hx of bilateral breast reduction surgery Hx of colonoscopy History of esophagogastroduodenoscopy (EGD) Family History Father Myocardial infarction Diabetes Coronary artery disease Mother Brain aneurysm Rheumatoid arthritis Gastric cancer Sister Rheumatoid arthritis Social History Household Members: Spouse Alcohol intake: never Patient Tobacco Use Status: Never used Tobacco Current occupational status: disabled Review of Systems Const Details: Review of Systems Constitutional: Denies fever, chills, weight loss ENT: Denies vision changes, eye pain or eye redness, dental caries, dry mouth GI: Denies nausea, vomiting, diarrhea, abdominal pain, change in BM Pulm: Denies SOB, NIETO, hemoptysis, wheezing Cards: Denies chest pain, palpitations Skin: Denies Raynaud's, rash, nail changes, photosensitivity, 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 Well appearing and in no apparent painful distress MSK Hands * Right Hand: Able to make a fist. No swelling or tenderness to palpation of the MCPs, PIPs or DIPs. Synovial hypertrophy to the 2nd MCP with TTP * Left Hand: Able to make a fist. No swelling or tenderness to palpation of the MCPs, PIPs or DIPs. * Herbedens nodes noted bilaterally Wrists * Right Wrist: Full ROM to flexion and extension. No swelling or TTP * Left Wrist: Full ROM to flexion and extension. No swelling or TTP Elbows * Right Elbow: Full ROM. No swelling or TTP. No TTP of the medial epicondyle. No TTP of the lateral epicondyle * Left Elbow: Full ROM. No swelling or TTP. No TTP of the medial epicondyle. No TTP of the lateral epicondyle Shoulders * Right shoulder: Full ROM. No swelling noted. No TTP of the AC joint. No TTP of the subacromial bursa. No TTP of the posterior shoulder * Left shoulder: Full ROM. No swelling noted. No TTP of the AC joint. No TTP of the subacromial bursa. No TTP of the posterior shoulder Knees * Right knee: Full ROM. No swelling noted. No TTP of the knee joint line. No TTP of pes anserine bursa * Left knee: Full ROM. No swelling noted. No TTP of the knee joint line. No TTP of pes anserine bursa. * Crepitations felt bilaterally Ankles * Right ankle: Good ankle dorsiflexion and plantar flexion. No swelling. No TTP of the ankle joint * Left ankle: Good ankle dorsiflexion and plantar flexion. No swelling. No TTP of the ankle joint Feet * Right foot: Negative squeeze test * Left foot: Negative squeeze test Tender points? * No tenderness to palpation of the supraspinatus, anterior costochondral junctions, bilateral suboccipital muscle insertions * TTP bilateral trapezius SKIN No rashes Vital Signs: Last Vital Signs Pulse 80 05/12/25 14:28 BP 122/80 05/12/25 14:28 Pulse Ox 96 05/12/25 14:28 Oxygen Delivery Method Room Air 05/12/25 14:28 BMI result Body Mass Index 24.8 Results Reviewed Results Reviewed: Laboratory Tests 12/07/24 04/27/25 14:38 10:41 WBC 6.3 RBC 4.35 Hgb 13.2 Hct 40.1 Plt Count 186 ESR 22 H Sodium 140 Potassium 4.7 D Chloride 106 Carbon Dioxide 25 BUN 15 Creatinine 0.66 AST 23 ALT 15 C-Reactive Protein < 0.10 25-OH Vitamin D Total 27 L Laboratory Tests 10/24/23 16:39 Rheumatoid Factor < 13.0 Cycl Citrul Peptide IgG 174 H SVETLANA Screen NEGATIVE Laboratory Tests 12/07/24 14:38 Hepatitis A IgM Ab Nonreactive Hep Bs Antigen Negative Hep Bs Antibody REACTIVE Hep B Core Total Ab Nonreactive Hepatitis C Ab (EIA) Nonreactive TB Test (T-Spot) Com Negative Assessment & Plan Assessment & Plan (1) Seropositive rheumatoid arthritis: Comment: -ve RF ++CCP dx 10/2023 MTX 10/2023 - DC 07/2024 ineffective and caused transaminitis Humira started 04/2024 effective Code(s): M05.9 - Rheumatoid arthritis with rheumatoid factor, unspecified Category: Medical Plan: #Seropositive RA Patient is a 64 y.o. female with seropositive rheumatoid arthritis here today for follow up. RA in remission on Humira monotherapy Plan - Humira 40mg SC every other week - RTC 6 months - Labs before visit: CBC, CMP, CRP, ESR (2) Generalized osteoarthritis: Code(s): M15.9 - Polyosteoarthritis, unspecified Plan: #Polyarticular OA Patient with joint complaints consistent with degenerative OA. Recommended continue topical diclofenac use 4 times a day. Also recommended paraffin wax baths Plan - Topical diclofenac 1% qid - Paraffin wax baths for hands twice a day (3) Fibromyalgia: Code(s): M79.7 - Fibromyalgia Category: Medical Plan: #Fibromyalgia Patient with trapezius fibromyalgia tender points. Recommending stretches and light exercises Recommended massage as well (4) Age-related osteoporosis without fracture: Code(s): M81.8 - Other osteoporosis without current pathological fracture Category: Medical Plan: #Osteoporosis Patient with osteoporosis currently being managed by Endocrinology at [place] with Prolia injections. (5) Encounter for monitoring of adalimumab therapy: Code(s): Z51.81 - Encounter for therapeutic drug level monitoring; Z79.620 - terminal worker (current) use of immunosuppressive biologic Plan: #Long-term Use of TNF Inhibitors: Humira Discussed with the patient the benefits and risks of TNF inhibitors for the management of the rheumatic condition Benefits include reduce pain, maintenance of remission and reduction of flares as well as ?progression of the disease Risks include injection sites/infusion reactions, serious infections (such as bacterial infections, opportunistic infections), malignancy, delaminating syndromes, autoimmune phenomena, CHF exacerbations, palmar plantar psoriasis and cytopenias Recommended rotating injection sites, and holding medication during and for up to 1 week after resolution of a febrile illness or open skin wound Plan I spent 30 minutes reviewing the record and labs, taking a history, examining the patient, discussing the treatment plan, ordering diagnostic work up and documenting in the medical record Coding Level of Care Code Est Pt Level 4 (38863) Complex EM visit Add On G2211 Diagnoses Seropositive rheumatoid arthritis M05.9 Generalized osteoarthritis M15.9 Fibromyalgia M79.7 Age-related osteoporosis without fracture M81.8 Encounter for monitoring of adalimumab therapy Z51.81; Z79.620
--- OUTSIDE RECORDS SUMMARY | 2025-05-12 18:01 | XMS_ITS | Clinical Summary ---
Author Organization [facility] [address] [place] [address] [place] [phone] Phone Care Team Providers Care Juvenile Detention Officer Name Role Phone Jose Dean MD Primary Care Provider [phone] Allergies Active Allergy Reactions Criticality Noted Date [...] DAILY 510 g 1 11/05/19 25 Active ibuprofen (ADVIL,MOTRIN) 600 mg tablet TAKE 1 [...] DAILY 60 each 1 03/30/20 25 Active omeprazole (PriLOSEC) [address] capsule TAKE 1 CAPSULE BY MOUTH DAILY 90 capsule 1 05/05/20 25 Active atorvastatin (LIPITOR) 20 mg tablet TAKE 1 TABLET BY MOUTH AT BEDTIME 90 tablet 1 05/05/20 25 Active omeprazole (PriLOSEC) [address] capsule TAKE ONE CAPSULE BY MOUTH DAILY 90 capsule 1 11/07/19 25 025 Discontinued atorvastatin (LIPITOR) 20 mg tablet TAKE 1 TABLET BY MOUTH AT BEDTIME 90 tablet 1 11/07/19 25 025 Discontinued Active Problems Problem Noted [...] WHI. I discussed risks including cardiovascular disease- AR, DVT, stroke. I discussed small increased risk [...] options. Obstructive sleep apnea 08/03/2022 Overview (05/19/2024): [facility] Home Sleep Apnea Test: Date [...] 01/22/2022 Hematuria 08/21/2021 Overview (05/19/2024): Follows with [facility] urology Nephrolithiasis 08/21/2021 Overview (05/19/2024): Follows with [facility] urolog Age-related osteoporosis wit hout [...] - 03/25/2025 11:59 PM EDT Hospital Encounter [address] [phone] Acute pain of left shoulder Discharge Disposition: Home or Self Care 03/25/2025 1:00 PM EDT Office Visit Adult Medicine [address] [phone] Jose Dean MD Acute pain of left shoulder (Primary Dx); Pure hypercholesterolemia ; Encounter for long-term (current) use of medications; Myalgia; Fibromyalgia; Rheumatoid arthritis, involving unspecified site, unspecified whether rheumatoid factor present ([facility] V24, [facility] V28) 03/12/2025 8:30 AM EDT Office Visit Pulmonology - [address] [place] [address] Laura Frye NP Obstructive sleep [...] Date Site/Laterality Comments OTHER SURGICAL HISTORY PROCEDURE: IN TOTAL ABDOMINAL HYSTERECT W/WO RMVL TUBE OVARY ESOPHAGOGASTRODUODENOSCOPY 10/03/2009 PROCEDURE: IN EGD TRANSORAL BIOPSY SINGLE/MULTIPLE; COMMENT: Esophagus normal-biopsy, gastritis-biopsy, normal SB. gastric bx: chronic gastritis (Hpylori-). Esophagus bx: Normal COLONOSCOPY 10/16/10 PROCEDURE: HISTORICAL COLONOSCOPY; COMMENT: adenomas; repeat in three years BREAST REDUCTION PROCEDURE: IN BREAST REDUCTION; COMMENT: 2015 Medical History Medical [...] 11:00 AM EST Office Visit Pulmonology - [place] [address] [facility] [address] [facility] [address] [place] [phone] Laura Frye, PE[address] [place] [address] 09/20/2025 1:15 PM EST Office Visit Endocrinology [address] [phone] Jazmyne Martinez MD [address] [place] [address] Health Maintenance Due Date Last Done Comments Pneumococcal Vaccine: 50+ Years (1 of 2 - PCV) 10/11/1979 HIV Screening 07/07/2022 Medicare Annual Wellness Visit 07/07/2022 Social Influencers of Health Screening 07/07/2022 Depression Screening 07/29/2024 COVID-19 Vaccine ( season) 2025 05/14/2023, 06/24/2022, 07/17/2021, Additional history exists Influenza Vaccine (#1) 2025 , 05/14/2023, 06/24/2022, Additional history exists Breast Cancer [...] changes at the acromioclavicular joint. POS - [id number] -------- FINAL REPORT -------- Dictated By: Nataliia Julien Dictated Date: 03/26/2025 13:41 ET Assigned Physician: Nataliia Julien Reviewed and Electronically Signed By: Nataliia Julien Signed Date: 03/26/2025 13:43 ET Workstation ID: [id number] Transcribed By: Self Edit Transcribed Date: 03/26/2025 [...] degenerative changesat the acromioclavicular joint. POS - [id number] -------- FINAL REPORT -------- Dictated By: Nataliia Julien Dictated Date: 03/26/2025 13:41 ET Assigned Physician: Nataliia Julien Reviewed and Electronically Signed By: Nataliia Julien Signed Date: 03/26/2025 13:43 ET Workstation ID: [id number] Transcribed By: Self Edit Transcribed Date: 03/26/2025 13:41 ET us Jose Dean MD IMG XR PROCEDURES Final Result * Lipid panel with reflex to direct LDL (03/25/2025 1:32 PM EDT) Cholesterol 174 0 - 200 mg/dL LAB CHEMISTRY METHOD 03/25/2025 5:13 PM EDT [facility] Triglycerides 72 0 - 150 mg/dL LAB CHEMISTRY METHOD 03/25/2025 5:13 PM EDT [facility] HDL 82 >=40 mg/dL LAB CHEMISTRY METHOD 03/25/2025 5:13 PM EDT [facility] LDL Calculated 78 0 - 100 mg/dL LAB CHEMISTRY METHOD 03/25/2025 5:13 PM EDT [facility] Comment:Estimated LDL Calcul ated using equation: Total cholesterol - HDL cholesterol - (Triglycerides/5) VLDL Cholesterol Alessio 14.4 mg/dL LAB CHEMISTRY METHOD 03/25/2025 5:13 PM EDT [facility] Non HDL Chol. (LDL+VLDL) 92 <145 mg/dL LAB CHEMISTRY METHOD 03/25/2025 5:13 PM EDT [facility] Chol/HDL Ratio 2.1 0.0 - 4.4 LAB CHEMISTRY METHOD 03/25/2025 5:13 PM EDT [facility] Blood Venous blood specimen / Unknown Venipuncture / Unknown 03/25/2025 1:32 PM EDT 03/25/2025 1:32 PM EDT us Jose Dean MD LAB BLOOD ORDERABLES Final Resu lt Performing Organization Address City/[facility]/ZIP Co de Phone Number [facility] [address] [place] [address], [place] [phone] * Creatine kinase (03/25/2025 1:32 PM EDT) Total CK 253 22 - 269 unit/L LAB CHEMISTRY METHOD 03/25/2025 5:06 PM EDT [facility] Blood Venous blood specimen / Unknown Venipuncture / Unknown 03/25/2025 1:32 PM EDT 03/25/2025 1:32 PM EDT us Jose Dean MD LAB BLOOD ORDERABLES Final Resu lt [facility] [address] [place] [address], [place] [phone] * Comprehensive metabolic panel (03/25/2025 1:32 PM EDT) Sodium 138 133 - 145 mmol/L LAB CHEMISTRY METHOD 03/25/2025 5:11 PM [facility] Potassium 4.4 3.5 - 5.5 mmol/L LAB CHEMISTRY METHOD 03/25/2025 5:11 PM [facility] Chloride 105 96 - 110 mmol/L LAB CHEMISTRY METHOD 03/25/2025 5:11 PM [facility] CO2 28 21 - 32 mmol/L LAB CHEMISTRY METHOD 03/25/2025 5:11 PM [facility] Anion Gap 5 3 - 11 LAB CHEMISTRY METHOD 03/25/2025 5:11 PM [facility] Glucose 82 70 - 100 mg/dL LAB CHEMISTRY METHOD 03/25/2025 5:11 PM [facility] BUN 9 5 - 25 mg/dL LAB CHEMISTRY METHOD 03/25/2025 5:11 PM [facility] Creatinine 0.61 0.50 - 1.10 mg/dL LAB CHEMISTRY METHOD 03/25/2025 5:11 PM [facility] eGFR 100 >=60 mL/min/1. 73m2 LAB CHEMISTRY METHOD 03/25/2025 5:11 PM [facility] Comment:Calculation based on the Chronic Kidney Disease Epidemiology Collaboration (CKD-EPI) equation refit without adjustment for race. BUN/Creatinine Ratio 14.8 LAB CHEMISTRY METHOD 03/25/2025 5:11 PM [facility] Calcium 10.0 8.5 - 10.5 mg/dL LAB CHEMISTRY METHOD 03/25/2025 5:11 PM [facility] AST (SGOT) 19 10 - 42 unit/L LAB CHEMISTRY METHOD 03/25/2025 5:11 PM [facility] ALT (SGPT) 28 10 - 60 unit/L LAB CHEMISTRY METHOD 03/25/2025 5:11 PM EDT [facility] Alkaline Phosphatase 100 42 - 121 unit/L LAB CHEMISTRY METHOD 03/25/2025 5:11 PM EDT [facility] Total Protein 7.8 6.0 - 8.0 g/dL LAB CHEMISTRY METHOD 03/25/2025 5:11 PM EDT [facility] Albumin 4.4 3.2 - 5.0 g/dL LAB CHEMISTRY METHOD 03/25/2025 5:11 PM EDT [facility] Total Bilirubin 0.5 0.0 - 1.4 mg/dL LAB CHEMISTRY METHOD 03/25/2025 5:11 PM EDT [facility] Blood Venous blood specimen / Unknown Venipuncture / Unknown 03/25/2025 1:32 PM EDT 03/25/2025 1:32 PM EDT us Jose Dean MD LAB BLOOD ORDERABLES Final Resu lt [facility] [address] [place] [address], [place] [phone] * MG Mammo Digital Screening w Dajuan bilat (2024 12:55 PM EDT) Anatomical Region Laterality Modality Breast Bilateral Mammography 10/12/2024 6:26 PM EDT Impressions 10/12/2024 6:28 PM EDT No mammographic evidence of malignancy. BREAST DENSITY: B - There are scattered areas of fibroglandular density. BI-RADS CATEGORY: 2 - BENIGN RECOMMENDATION: Screening bilateral mammogram is recommended in 1 year. MAMMO LOCATION: [facility], [address] [place] [address], [phone], . -------- FINAL REPORT -------- Dictated By: Nataliia Julien Dictated Date: 10/12/2024 18:26 ET Assigned Physician: Nataliia Julien Reviewed and Electronically Signed By: Nataliia Julien Signed Date: 10/12/2024 18:28 ET Workstation ID: [id number] Transcribed By: Self Edit Transcribed Date: 10/12/2024 [...] is recommended in 1 year. MAMMO LOCATION: [facility], [address] [place] [address], [phone], . -------- FINAL REPORT -------- Dictated By: Nataliia Julien Dictated Date: 10/12/2024 18:26 ET Assigned Physician: Nataliia Julien Reviewed and Electronically Signed By: Nataliia Julien Signed Date: 10/12/2024 18:28 ET Workstation ID: [id number] Transcribed By: Self Edit Transcribed Date: 10/12/2024 [...] should be classified as having osteoporosis. The [facility] Department of Internal Medicine recommends using [...] Mike should beclassified as having osteoporosis. The [facility] Department of Internal Medicine recommendsusing National [...] fracture risk by FRAX. Jazmyne Martinez MD [facility] DXA PROCEDURES Final Result * Colonoscopy (12/06/2021) Pathologist [facility] Colonoscopy no interpretation , abstracted Anatomical Region Laterality Modality Other Result [facility] Historical Provider HEALTH MAINTENANCE Final Result * Hepatitis C Screening (12/23/2018) [facility] Hepatitis C Screening abstracted Historical Provider HEALTH MAINTENANCE Final Result from Last 3 Months or Most Recently Relevant to Health Maintenance Insurance [employer] MEDICARE Member Subscriber Plan / Payer (Ef fective 2018-Present) Name:MYAH MIKE Relation to Subscriber:Self Name:Myah Moise Payer ID:[id number] Group ID:[id number] Type:Not on file Address: [place] [address] [address] [place] [phone] Care Teams Juvenile Detention Officer Relationship Specialty Start Date End Date Jose Dean MD [address] [place] [phone] PCP - General Internal Medicine 09/18/24
--- OUTSIDE RECORDS SUMMARY | 2025-05-12 18:01 | XMS_ITS | Data Portability ---
Author Organization [employer] [facility] Address [address] [place] [phone] Care Team Providers Care Geometry Teacher Name Role Phone KRISSY SALMERON Primary Care [...] Not available Not available Not available 05/26/2024 [phone] SNOMED Not Available [facility] - production [...] Body height Body temperature Respiratory rate Systolic And Diastolic Provider Name and Address Organization Details Last Updated DateTime 3 68 /min 68675.6 g 98 % 98 % 167.64 cm 97.4 [degF] 14 /min 135/83 mm[Hg] Not Available [facility] - production 3 [...] Diagnosis SNOMED-CT Code Diagnosis ICD10 Code Diagnosis IMO Codes Diagnosis Note [id number] Cate Barry MD Main - [facility] [address] [place] [phone] 03/21/2023 15:56:58 03/22/2023 00:25:09 Chest wall pain 918394261 R07.89 Health Concerns Section Related Observation LastModified by Organization Detai ls LastModified Time None Recorded Concern Status LastModified by Organization Details LastModified Time None Recorded Advance Directives Directive None Recorded Payers Insurance Date Sequence Insurance Name Policy Number Policy Raza Covered Member ID Raza Member ID Guarantor Name 02/20/2024 1 [facility] - DOS ON OR AFTER 2022 - DUAL ELIGIBLE - NURSING HOME OPTIONS AND ONE CARE (MEDICARE REPLACEMENT/ADV ANTAGE - HMO) Myah Welch [id number] Myah Welch Notes Date Note Type Note [...] but would like to proceed with an [facility] visit to be evaluated. ................. ................. ................. ................. ................. ................. ................. ................. ..... Rigger Third Note From Khoi Watson: Pt caox3 seated on couch. Pt reports, through on scene spanish interpreter, that she fell from standing outside [...] test Red flags and pt education discussed. Rigger Third Allergies: Penicillin ................. ................. ................. ................. ................. ................. ................. ................. ..... Disposition: Fulfilled Cate Barry MD [address] [place] [address],[facility], [place], [phone], [employer] A/SFRANCINE 03/21/2023 18:46:01 OBGyn Episode No OBEpisode recorded.
== END 2025-05-12 14:52 | disposition home or self-care (01) ==
LOC: HO.RHE 14:17
PROVIDERS: PCP Internal Medicine; Visit Provider Student in an Organized Health Care Education/Training Program
DX: M05.79 Rheumatoid arthritis with rheumatoid factor of multiple sites without organ or systems involvement (principal); M15.9 Polyosteoarthritis, unspecified; M79.7 Fibromyalgia; M81.8 Other osteoporosis without current pathological fracture; Z51.81 Encounter for therapeutic drug level monitoring; Z79.620 Long term (current) use of immunosuppressive biologic
CPT/HCPCS: 99214; G2211

== ENCOUNTER → 2025-05-12 14:17 | Outpatient (BNVA) | payer OTHER, SELFPAY | PROVIDERS: PCP Internal Medicine; Visit Provider Student in an Organized Health Care Education/Training Program | DX: M05.7A Rheumatoid arthritis with rheumatoid factor of other specified site without organ or systems involvement (principal); M15.9 Polyosteoarthritis, unspecified; M79.7 Fibromyalgia; M81.8 Other osteoporosis without current pathological fracture; Z51.81 Encounter for therapeutic drug level monitoring; Z79.620 Long term (current) use of immunosuppressive biologic | CPT/HCPCS: 99212 ==